=== PATIENT | female | born 1940 | race Caucasian/White ===

== ENCOUNTER 2016-12-18 06:46 | Inpatient (IN) | payer MEDICARE, OTHER ==
[2016-12-18 07:10] LABS: ABSOLUTE BASOPHILS # (AUTO) 0.1 10^3/uL (0.0-0.2); ABSOLUTE EOSINOPHILS # (AUTO) 0.3 10^3/uL (0.0-0.6); ABSOLUTE LYMPHOCYTES (AUTO) 1.9 10^3/uL (0.5-4.7); ABSOLUTE MONOCYTES (AUTO) 0.6 10^3/uL (0.1-1.4); ABSOLUTE NEUT (AUTO) 3.4 10^3/uL (1.7-8.2); BASOPHILS % (AUTO) 1.1 % (0-2); HEMATOCRIT 35.8 % (36.0-47.0); HEMOGLOBIN 12.2 g/dL (12.0-15.5); HGB HCT DIFFERENCE 0.8; LYMPHOCYTES % (AUTO) 30.9 % (13-45); MEAN CORPUSCULAR HEMOGLOBIN 29.9 pg (27.0-33.4); MEAN CORPUSCULAR HGB CONC 34.1 g/dL (32.0-36.0); MEAN CORPUSCULAR VOLUME 88 fl (80-97); MONOCYTES % (AUTO) 9.8 % (3-13); RED BLOOD COUNT 4.08 10^6/uL (3.72-5.28); RED CELL DISTRIBUTION WIDTH 14.1 % (11.5-14.0); SEGMENTED NEUTROPHILS % (AUTO) 54.2 % (42-78); WHITE BLOOD COUNT 6.3 10^3/uL (4.0-10.5)
--- NOTE | 2016-12-18 07:10 | ER Document Report ---
ED General - General Stated Complaint: STROKE LIKE SYMPTOMS Time Seen by Provider: 12/18/16 06:48 Mode of Arrival: Medic Information source: Patient Notes: 76-year-old female presents with stroke-like symptoms. Patient is noted to have left-sided deficits. Pt woke up her at 602 this morning with these symptoms, pt herself unsure if she awoke with the symptoms or not denies a history of CVA, notes there is a blood disorder that prohibits her from having blood thinners TRAVEL OUTSIDE OF THE [place] IN LAST 30 DAYS: No - HPI Onset: Just prior to arrival Onset/Duration: Sudden Quality of pain: No pain Severity: Moderate Pain Level: Denies Associated symptoms: Weakness Exacerbated by: Denies Relieved by: Denies Similar symptoms previously: No Recently seen / treated by doctor: No Past Medical History - Social History Smoking Status: Never Smoker Cigarette use (# per day): No Chew tobacco use (# tins/day): No Smoking Education Provided: No Family History: Reviewed & Not Pertinent Review of Systems - Review of Systems Notes: REVIEW OF SYSTEMS: CONSTITUTIONAL : Denies fever, chills, or sweats. Denies recent illness. EENT: Denies eye, ear, throat, or mouth pain or symptoms. Denies nasal or sinus congestion or discharge. Denies throat, tongue, or mouth swelling or difficulty swallowing. CARDIOVASCULAR: Denies chest pain. Denies palpitations or racing or irregular heart beat. Denies ankle edema. RESPIRATORY: Denies cough, cold, or chest congestion. Denies shortness of breath, difficulty breathing, or wheezing. GASTROINTESTINAL: Denies abdominal pain or distention. Denies nausea, vomiting , or diarrhea. Denies blood in vomitus, stools, or per rectum. Denies black, tarry stools. Denies constipation. GENITOURINARY: Denies difficulty urinating, painful urination, burning, frequency, blood in urine, or discharge. FEMALE GENITOURINARY: Denies vaginal bleeding, heavy or abnormal periods, irregular periods. Denies vaginal discharge or odor. MUSCULOSKELETAL: Denies back or neck pain or stiffness. Denies joint pain or swelling. SKIN: Denies rash, lesions or sores. HEMATOLOGIC : Denies easy bruising or bleeding. LYMPHATIC: Denies swollen, enlarged glands. NEUROLOGICAL: confusion, left sided weakness PSYCHIATRIC: Denies anxiety or stress. Denies depression, suicidal ideation, or homicidal ideation. ALL OTHER SYSTEMS REVIEWED AND NEGATIVE. PHYSICAL EXAMINATION: GENERAL: Well-appearing, well-nourished and in no acute distress. HEAD: Atraumatic, normocephalic. EYES: Pupils equal round and reactive to light, extraocular movements intact, conjunctiva are normal. ENT: Nares patent, oropharynx clear without exudates. Moist mucous membranes. NECK: Normal range of motion, supple without lymphadenopathy LUNGS: Breath sounds clear to auscultation bilaterally and equal. No wheezes rales or rhonchi. HEART: Regular rate and rhythm without murmurs ABDOMEN: Soft, nontender, nondistended abdomen. No guarding, no rebound. No masses appreciated. Female : deferred Musculoskeletal: Normal range of motion, no pitting or edema. No cyanosis. NEUROLOGICAL: NIH score 6, please see paper PSYCH: Normal mood, normal affect. SKIN: Warm, Dry, normal turgor, no rashes or lesions noted. Dictation was performed using [employer] voice recognition software Physical Exam - Vital signs Vitals: Resp BP Pulse Ox 17 153/63 H 96 12/18/16 06:57 12/18/16 06:57 12/18/16 06:57 Course - Re-evaluation Re-evalutation: 12/18/16 07:13 Physical examination is consistent with strokelike presentation, there is left arm and left leg weakness and left facial droop. Unfortunately it appears time of onset is very unclear and given history of allergies to blood thinners patient does not meet criteria for thrombolysis 12/18/16 07:48 pt given aspirin, otherwise no other intervention is needed as she is stable - Vital Signs Vital signs: Temp Pulse Resp BP Pulse Ox 67 17 161/63 H 96 12/18/16 07:12 12/18/16 07:31 12/18/16 07:31 12/18/16 07:31 - Laboratory Result Diagrams: 12/18/16 07:00 12/18/16 07:00 Laboratory results interpreted by me: 12/18/16 12/18/16 12/18/16 07:00 07:00 07:09 Hct 35.8 L RDW 14.1 H BUN 21 H Est GFR (Non-Af Amer) 59 L Glucose 112 H POC Glucose 114 H - Diagnostic Test Radiology reviewed: Image reviewed, Reports reviewed - EKG Interpretation by Me EKG shows normal: Sinus rhythm, [place], Intervals, QRS Complexes Discharge - Discharge Clinical Impression: Weakness of left side of body Cerebrovascular accident (CVA) Qualifiers: CVA mechanism: unspecified Qualified Code(s): I63.9 - Cerebral infarction, unspecified Condition: Stable Disposition: ADMITTED INPATIENT Admitting Provider: Hospitalist Unit Admitted: [facility]
[2016-12-18 07:14] LABS: PROTHROMBIN TIME 13.3 SEC (11.4-15.4)
--- NOTE | 2016-12-18 07:20 | RADIOLOGY REPORT (SQ) ---
EXAM DESCRIPTION: CT HEAD WITHOUT COMPLETED DATE/TIME: 12/18/2016 7:03 am REASON FOR STUDY: stroke alert COMPARISON: None. TECHNIQUE: Axial images acquired through the brain without intravenous contrast. Images reviewed wi th bone, brain and subdural windows. Images stored on PACS. All CT scanners at this facility use dose modulation, iterative reconstruction, and/or weight based d osing when appropriate to reduce radiation dose to as low as reasonably achievable (ALARA). [facility]: Dose Right [facility]: CareDose [facility]: Dose Right [facility]: Teradose 4D [facility]: Smart [place] RADIATION DOSE: mGy. LIMITATIONS: None. FINDINGS: VENTRICLES: Normal size and contour. CEREBRUM: [id number] cerebral volume loss. Moderate small vessel white matter ischemic disease . Lacunar infarct of the right basal ganglia, external capsule. CEREBELLUM: No masses. No hemorrhage. No alteration of density. No evidence for acute infarction. EXTRAAXIAL SPACES: No fluid collections. No masses. Atherosclerosis. ORBITS AND GLOBE: No intra- or extraconal masses. Normal contour of globe without masses. CALVARIUM: No fracture. PARANASAL SINUSES: No fluid or mucosal thickening. SOFT TISSUES: No mass or hematoma. OTHER: No other significant finding. IMPRESSION: No acute findings. COMMENT: This report was called to Dr. Yoselin De Anda at07:08 on 12/18/2016. TECHNICAL DOCUMENTATION: JOB ID: [id number] Quality ID # [id number]: Final reports with documentation of one or more dose reduction techniques (e.g., Au tomated exposure control, adjustment of the mA and/or kV according to patient size, use of iterative reconstruction technique) 2010 [email or web address]- All Rights Reserved
--- NOTE | 2016-12-18 07:23 | RADIOLOGY REPORT (SQ) ---
EXAM DESCRIPTION: CHEST SINGLE VIEW COMPLETED DATE/TIME: 12/18/2016 7:11 am REASON FOR STUDY: stroke alert COMPARISON: None. EXAM PARAMETERS: NUMBER OF VIEWS: One view. TECHNIQUE: Single frontal radiographic view of the chest acquired. RADIATION DOSE: NA LIMITATIONS: None. FINDINGS: LUNGS AND PLEURA: Small atelectasis or scar of the left lower lobe. Mild interstitial mar kings. MEDIASTINUM AND HILAR STRUCTURES: No masses. Contour normal. HEART AND VASCULAR STRUCTURES: Heart normal in size. Atherosclerosis. BONES: No acute findings. HARDWARE: None in the chest. OTHER: No other significant finding. IMPRESSION: Mild interstitial markings which may indicate mild pulmonary edema, atypical pneumonitis , and/ or chronic interstitial lung disease. TECHNICAL DOCUMENTATION: JOB ID: [id number]
[2016-12-18 07:33] LABS: ALANINE AMINOTRANSFERASE 24 U/L (9-52); ALBUMIN 3.8 g/dL (3.5-5.0); ALKALINE PHOSPHATASE 86 U/L (38-126); ANION GAP 10 (5-19); ASPARTATE AMINO TRANSFERASE 20 U/L (14-36); BILIRUBIN,DIRECT 0.3 mg/dL (0.0-0.4); BILIRUBIN,TOTAL 0.5 mg/dL (0.2-1.3); BLOOD UREA NITROGEN 21 mg/dL (7-20); CALCIUM 9.3 mg/dL (8.4-10.2); CARBON DIOXIDE 27 mmol/L (22-30); CHLORIDE 102 mmol/L (98-107); CREATINE KINASE 43 U/L (30-135); CREATININE RESULT 0.93 mg/dL (0.52-1.25); GLUCOSE 112 mg/dL (75-110); POTASSIUM 3.9 mmol/L (3.6-5.0); SODIUM 138.7 mmol/L (137-145); TOTAL PROTEIN 6.5 g/dL (6.3-8.2)
[2016-12-18 07:44] LABS: CREATINE KINASE MB 0.56 ng/mL (<4.55)
[2016-12-18 07:45] LABS: TROPONIN I < 0.012 ng/mL
[2016-12-18] MEDS ORDERED: ASPIRIN 325 MG TABLET PO ONE (07:45)
--- NOTE | 2016-12-18 08:05 | EKG REPORT ---
SEVERITY:- BORDERLINE ECG - SINUS RHYTHM : Confirmed by: Cirilo Fletcher MD 18-Dec-2016 08:04:04
[2016-12-18] MEDS ORDERED: LABETALOL HCL INJ 20 MG/4 ML DISP.SYRIN IV PRN (08:55)
[2016-12-18] MEDS ORDERED: DOCUSATE SODIUM 100 MG CAPSULE PO PRN (08:55)
[2016-12-18] MEDS ORDERED: MAGNESIUM HYDROXIDE SUSP 30 ML UDCUP PO PRN (08:55)
[2016-12-18] MEDS ORDERED: TRAMADOL HCL 50 MG TABLET PO PRN (08:55)
[2016-12-18] MEDS ORDERED: ENALAPRILAT DIHYDRATE INJ/PF 1.25 MG/1 ML SDV IV PRN (09:00)
[2016-12-18] MEDS: FAMOTIDINE 20 MG TABLET PO SCH ×2 (10:00→22:22)
[2016-12-18] MEDS: ASPIRIN 325 MG TABLET, ENT COATED PO SCH (10:55)
--- NOTE | 2016-12-18 12:08 | RADIOLOGY REPORT (SQ) ---
EXAM DESCRIPTION: CAROTID DOPPLER COMPLETED DATE/TIME: 12/18/2016 11:59 am REASON FOR STUDY: cva COMPARISON: None. TECHNIQUE: Grayscale ultrasound, Doppler velocity and spectra, and color Doppler images acquired of the extra-cranial carotid and vertebral arteries. Images stored on PACS. LIMITATIONS: None. FINDINGS: RIGHT CAROTID CCA Velocities: Within normal limits. ICA Velocities Peak systolic 1.46 m/s. End diastolic 0.23 m/s. Proximal ICA/CCA peak systolic ratio 1.4. Extensive heterogenous shadowing plaque. LEFT CAROTID CCA Velocities: Within normal limits. ICA Velocities Peak systolic 1.25 m/s. End diastolic 0.17 m/s. Proximal ICA/CCA peak systolic ratio 1.1. Heterogenous plaque. VERTEBRAL ARTERIES: Antegrade flow. Normal waveforms. SUBCLAVIAN ARTERIES: No finding. OTHER: No other significant finding. IMPRESSION: BILATERAL HETEROGENOUS PLAQUE. ELEVATED VELOCITIES BUT LESS THAN 50% STENOSIS. COMMENT: Quality ID #[id number]: Velocity criteria are extrapolated from the diameter data as defined by t he Society of Radiologists in Ultrasound Consensus Conference. Radiology 2003: 229; 340-346. TECHNICAL DOCUMENTATION: JOB ID: [id number] [employer]- All Rights Reserved
--- NOTE | 2016-12-18 13:09 | XCELERA REPORT ---
[address] [address] Transthoracic Echocardiogram Report Name: FIDENCIO MORA Age: 76 yrs Gender: Female : 1940 Patient Status: Inpatient Patient Location: [id number]\313\[id number]\A Study Date: 12/18/2016 10:31 AM Height: 66 in Weight: 188 lb BSA: 1.9 m2 Procedure: A complete two-dimensional transthoracic echocardiogram was performed (2D, M-mode, spectral and color flow Doppler). The study was technically adequate with some images being suboptimal in quality. Reason For Study: hx of mi, palpitations, acute cva Ordering Physician: RENALDO HERNANDEZ Performed By: Shayy Pierre Interpretation Summary The left ventricular ejection fraction is normal. There is mild concentric left ventricular hypertrophy. Doppler measurements suggest pseudonormalized left ventricular relaxation, which is associated with grade II/IV or mild to moderate diastolic dysfunction The left ventricle is grossly normal size. Wall motion cannot be accurately commented on, but no definite regional wall motion abnormalities noted. The right ventricular systolic function is normal. The left atrial size is normal. The right atrium is normal in size There is a mild amount of mitral regurgitation There is no mitral valve stenosis. No aortic regurgitation is present. There is no aortic valve stenosis There is a trace or physiologic amount of tricuspid regurgitation Tricuspid regurgitation jet envelope not well defined to measure RV systolic pressure accurately. The aortic root is not well visualized. The inferior vena cava appeared normal and decreased > 50% with respiration (RAP 5-10 mmHg) There is no pericardial effusion. No definite cardiac source of CVA/TIA noted on this particular trans- thoracic study. Consider JESUSITA if clinically indicated. May consider mobile cardiac telemetry monitoring (MCT) for ruling out transient AFIB. MMode/2D Measurements \T\ Calculations RVDd: 3.7 cm LVIDd: 4.0 cm FS: 39.4 % Ao root diam: 2.5 cm IVSd: 1.0 cm LVIDs: 2.4 cm EDV(Teich): 71.0 ml LVPWd: 1.0 cm ESV(Teich): 20.9 ml Ao root area: 5.0 cm2 EF(Teich): 70.5 % LA dimension: 3.5 cm Doppler Measurements \T\ Calculations MV E max lm: MV P1/2t max lm: Ao V2 max: LV V1 max P.5 cm/sec 77.5 cm/sec 132.6 cm/sec 5.6 mmHg MV A max lm: MV P1/2t: 112.4 msec Ao max PG: LV V1 max: 103.0 cm/sec 7.0 mmHg 118.0 cm/sec MV E/A: 0.77 MVA(P1/2t): 2.0 cm2 MV dec slope: 202.0 cm/sec2 MV dec time: 0.37 sec PA V2 max: TR max lm: 82.9 cm/sec 228.8 cm/sec PA max P.8 mmHgTR max P.9 mmHg Left Ventricle The left ventricle is grossly normal size. There is mild concentric left ventricular hypertrophy. The left ventricular ejection fraction is normal. Doppler measurements suggest pseudonormalized left ventricular relaxation, which is associated with grade II/IV or mild to moderate diastolic dysfunction. Wall motion cannot be accurately commented on, but no definite regional wall motion abnormalities noted. Right Ventricle The right ventricle is grossly normal size. There is normal right ventricular wall thickness. The right ventricular systolic function is normal. Atria The right atrium is normal in size. The left atrial size is normal. Interarterial septum not well visualized and not well dopplered. Cannot comment on ASD/PFO presence. Mitral Valve The mitral valve is grossly normal. There is no mitral valve stenosis. There is a mild amount of mitral regurgitation. Aortic Valve The aortic valve is mildly calcified. There is no aortic valve stenosis. No aortic regurgitation is present. Tricuspid Valve The tricuspid valve is not well visualized secondary to technical limitations. There is no tricuspid stenosis. There is a trace or physiologic amount of tricuspid regurgitation. Tricuspid regurgitation jet envelope not well defined to measure RV systolic pressure accurately. Pulmonic Valve The pulmonic valve is not well visualized. Great Vessels The aortic root is not well visualized. The inferior vena cava appeared normal and decreased > 50% with respiration (RAP 5-10 mmHg). Effusions There is no pericardial effusion. Incidental Findings No definite cardiac source of CVA/TIA noted on this particular trans- thoracic study. Consider JESUSITA if clinically indicated. May consider mobile cardiac telemetry monitoring (MCT) for ruling out transient AFIB. : RENALDO HERNANDEZ > Tejinder Guillen
--- NOTE | 2016-12-18 13:34 | RADIOLOGY REPORT (SQ) ---
EXAM DESCRIPTION: MRI HEAD WITHOUT COMPLETED DATE/TIME: 12/18/2016 1:23 pm REASON FOR STUDY: acute cva, left hemiparesis, left facial droop COMPARISON: CT dated 12/18/2016. TECHNIQUE: Multiplanar imaging includes non-contrasted T1, T2, FLAIR, and diffusion with ADC map seq uences. Images stored on PACS. LIMITATIONS: None. FINDINGS: ANATOMY: No anomalies. Normal vascular flow voids. Pituitary fossa normal. CSF SPACES: Atrophy induced prominence of ventricles and CSF spaces. CEREBRUM: High signal intensity lesions scattered throughout the white matter on FLAIR imaging with d istribution suggesting micro-vascular ischemic changes. No evidence of hemorrhage, mass, or extraaxi al fluid collection. POSTERIOR FOSSA: No signal alteration. No hemorrhage. No edema, masses or mass effect. Internal francoise tory canals, cerebello-pontine angles, mastoids normal. DIFFUSION IMAGING: Focal area of restricted diffusion in the right thalamus. ORBITS: No masses. Globes normal. PARANASAL SINUSES: No fluid levels. Mucosa normal. OTHER: No other significant finding. IMPRESSION: FOCAL AREA OF RESTRICTED DIFFUSION IN THE RIGHT THALAMUS CONSISTENT WITH ACUTE INFARCT. ATROPHY AND CHRONIC MICRO-VASCULAR ISCHEMIC CHANGES. EVIDENCE OF ACUTE STROKE: YES. RIGHT [employer] TECHNICAL DOCUMENTATION: JOB ID: [id number] [employer]- All Rights Reserved
--- NOTE | 2016-12-18 14:14 | PDOC H&P ---
History of Present Illness Admission Date/PCP: 12/18/16 08:03 History of Present Illness: FIDENCIO GARY is a 76 year old female with past medical history of hypertension, myocardial infarction approximately 25 years ago, GI bleed in 2010 , insomnia, depression/anxiety who reportedly woke up at approximately 6 AM. At which time patient reports that she was unable to get out of bed and asked her for assistance. She was unable to stand and ended up falling. Patient had no loss of consciousness at that time. No seizure activity was noted. Patient noted to have left upper and lower extremity weakness at that time. Patient also noted to have left facial droop. Patient recently has been started on a baby aspirin. Patient does report a history of palpitations but no overt diagnosis of atrial fibrillation. Patient was reportedly taken off of a blood pressure medication or some other heart medication yesterday. She last saw Dr. Azul her roving marker December 04. Patient presented outside of the window for thrombolytics. Her NIH scale was 6. On CAT scan of her head, patient has an old lacunar infarct but nothing acute. She is referred to the hospitalist service for acute CVA. Past Medical History Cardiac Medical History: Reports: Coronary Artery Disease, Myocardial Infarction , Hyperlipidema, Hypertension Pulmonary Medical History: Reports: None EENT Medical History: Reports: Cataracts Neurological Medical History: Reports: Ischemic CVA Endocrine Medical History: Reports: None Renal/ Medical History: Reports: None Malignancy Medical History: Reports: None GI Medical History: Reports: Other - GI bleed requiring transfusion and admission Musculoskeltal Medical History: Reports: Arthritis Skin Medical History: Reports: None Psychiatric Medical History: Reports: None Traumatic Medical History: Reports: None Hematology: Reports: None Infectious Medical History: Reports: None Past Surgical History Past Surgical History: Reports: Coronary Stent - Approximately 25 years ago with balloon angioplasty/stent in [place], Other - Cataract surgery Social History Smoking Status: Former Smoker Frequency of Alcohol Use: Occasional Amount of Alcoholic Beverages Per Day: 1 glass of wine approximately 3-4 times per week with dinner Hx Recreational Drug Use: No Hx Prescription Drug Abuse: No - Advance Directive Resuscitation Status: Full Code Surrogate healthcare decision maker:: Dawit Gary, Family History Family History: CVA, Hypertension Parental Family History Reviewed: Yes Children Family History Reviewed: Yes Sibling(s) Family History Reviewed.: Yes Medication/Allergy Home Medications: Losartan Potassium [Cozaar] 50 mg PO DAILY 12/18/16 Memantine HCl [Namenda] 5 mg PO DAILY 12/18/16 Risperidone [Risperdal 1 mg Tablet] 1 mg PO QHS 12/18/16 Sertraline HCl [Zoloft 50 mg Tablet] 50 mg PO DAILY 12/18/16 Allergies/Adverse Reactions: clopidogrel [From Plavix] Allergy (Verified 12/18/16 08:02) Sulfa (Sulfonamide Antibiotics) Allergy (Verified 12/18/16 08:02) Review of Systems Constitutional: ABSENT: chills, fever(s), headache(s), weight gain, weight loss Eyes: ABSENT: visual disturbances Ears: ABSENT: hearing changes Cardiovascular: ABSENT: chest pain, dyspnea on exertion, edema, orthropnea, palpitations Respiratory: ABSENT: cough, hemoptysis Gastrointestinal: ABSENT: abdominal pain, constipation, diarrhea, hematemesis, hematochezia, nausea, vomiting Genitourinary: ABSENT: dysuria, hematuria Musculoskeletal: ABSENT: joint swelling Integumentary: ABSENT: rash, wounds Neurological: PRESENT: as per HPI, abnormal gait, numbness, paresthesias, weakness. ABSENT: abnormal speech, confusion, dizziness, focal weakness, syncope Psychiatric: ABSENT: anxiety, depression, homidical ideation, suicidal ideation Endocrine: ABSENT: cold intolerance, heat intolerance, polydipsia, polyuria Hematologic/Lymphatic: ABSENT: easy bleeding, easy bruising Physical Exam Vital Signs: Temp Pulse Resp BP Pulse Ox 97.9 F 67 20 152/60 H 95 12/18/16 07:46 12/18/16 07:12 12/18/16 07:46 12/18/16 07:46 12/18/16 07:46 General appearance: PRESENT: no acute distress, obese, well-developed, well- nourished Head exam: PRESENT: atraumatic, normocephalic, other - Left facial droop Eye exam: PRESENT: conjunctiva pink, EOMI, PERRLA. ABSENT: scleral icterus Ear exam: PRESENT: normal external ear exam Mouth exam: PRESENT: moist, tongue midline Neck exam: ABSENT: carotid bruit, JVD, lymphadenopathy, thyromegaly, tracheal deviation Respiratory exam: PRESENT: clear to auscultation ric, prolonged expiratory phas , symmetrical, unlabored. ABSENT: crackles, rales, rhonchi, tachypnea, wheezes Cardiovascular exam: PRESENT: RRR, +S1, +S2, systolic murmur - 2/6 sm llsb. ABSENT: diastolic murmur, rubs Pulses: PRESENT: normal dorsalis pedis pul Vascular exam: PRESENT: normal capillary refill GI/Abdominal exam: PRESENT: normal bowel sounds, soft. ABSENT: distended, guarding, mass, Guillory's sign, organolmegaly, rebound, tenderness Rectal exam: PRESENT: deferred Extremities exam: PRESENT: full ROM. ABSENT: calf tenderness, clubbing, pedal edema Neurological exam: PRESENT: alert, awake, oriented to person, oriented to place , oriented to time, oriented to situation, motor sensory deficit - Left upper extremity 4-/5, left lower extremity 3-/5, left lower extremity paresthesia. ABSENT: CN II-XII grossly intact - Left facial droop, left cranial nerve V deficit Psychiatric exam: PRESENT: appropriate affect, normal mood. ABSENT: homicidal ideation, suicidal ideation Skin exam: PRESENT: dry, intact, warm. ABSENT: cyanosis, rash Results Laboratory Results: 12/18/16 12/18/16 12/18/16 07:00 07:00 07:00 WBC 6.3 Hgb 12.2 Hct 35.8 L Plt Count 208 INR 0.94 Sodium 138.7 Potassium 3.9 Chloride 102 Carbon Dioxide 27 BUN 21 H Creatinine 0.93 Glucose 112 H POC Glucose Calcium 9.3 Troponin I Albumin 3.8 12/18/16 12/18/16 07:00 07:09 WBC Hgb Hct Plt Count INR Sodium Potassium Chloride Carbon Dioxide BUN Creatinine Glucose POC Glucose 114 H Calcium Troponin I < 0.012 Albumin Impressions: Chest X-Ray 12/18/16 06:48 IMPRESSION: Mild interstitial markings which may indicate mild pulmonary edema , atypical pneumonitis, and/ or chronic interstitial lung disease. Head CT 12/18/16 06:48 IMPRESSION: No acute findings. Status: Imported from PACS Assessment & Plan - Diagnosis (1) CVA (cerebral vascular accident) Qualifiers: CVA mechanism: stenosis Precerebral and cerebral artery: middle cerebral artery Laterality of affected vessel: left Qualified Code(s) : I63.512 - Cerebral infarction due to unspecified occlusion or stenosis of left middle cerebral artery Is this a current diagnosis for this admission?: YesPlan: We will obtain MRI and carotid Doppler as well as echocardiogram if one was not performed at her last cardiology visit. Have concerned that patient may have underlying atrial fibrillation and will recommend that patient obtain a Holter monitor or MCT as an outpatient. Allow for permissive hypertension and admit patient to IMCU. MEND examinations q4 hours. 325 mg aspirin orally daily. Monitor on telemetry. Obtain PT, OT, and speech consultations. Place patient on Lipitor. Check FLP. (2) Left-sided weakness Is this a current diagnosis for this admission?: YesPlan: Consultation for PT, OT, and speech. Suspect the patient will likely need inpatient therapy. Will obtain discharge planning consultation. (3) Hypertension Qualifiers: Hypertension type: essential hypertension Qualified Code(s): I10 - Essential (primary) hypertension Is this a current diagnosis for this admission?: YesPlan: At this time, will allow for permissive hypertension, but in light of patient's relative bradycardia, will place patient on enalapril at as needed systolic greater than 180. (4) Hyperlipidemia Qualifiers: Hyperlipidemia type: unspecified Qualified Code(s): E78.5 - Hyperlipidemia, unspecified Is this a current diagnosis for this admission?: YesPlan: Check FLP (5) Coronary artery disease Qualifiers: Coronary Disease-Associated Artery/Lesion type: unspecified vessel or lesion type [place] vs. transplanted heart: [place] heart Associated angina: without angina Qualified Code(s): I25.10 - Atherosclerotic heart disease of [place] coronary artery without angina pectoris Is this a current diagnosis for this admission?: YesPlan: We will obtain outside record of the patient's prior stenting in order to obtain MRI. Continue patient on 81 mg aspirin and we will re-add losartan as soon as able. Suspect that patient's beta-raven was stopped. (6) History of GI bleed Is this a current diagnosis for this admission?: YesPlan: Patient reports allergy to Plavix which precipitated her GI bleed. (7) Dementia Qualifiers: Dementia type: vascular dementia Dementia behavioral disturbance: without behavioral disturbance Qualified Code(s): F01.50 - Vascular dementia without behavioral disturbance Is this a current diagnosis for this admission?: YesPlan: Patient is currently on Namenda and Risperdal. Provide supportive care and suspect that this is likely due to vascular dementia. (8) Obesity with serious comorbidity Qualifiers: Obesity classification: adult class 1 (BMI 30 ? 34.9) Body mass index: BMI 30.0-30.9 Is this a current diagnosis for this admission?: YesPlan: Encourage appropriate weight loss. Dietary consultation - Time Time Spent: 50 to 70 Minutes Medications reviewed and adjusted accordingly: Yes Anticipated discharge: Acute Rehab Within: within 48 hours - Inpatient Certification Based on my medical assessment, after consideration of the patient's comorbidities, presenting symptoms, or acuity I expect that the services needed warrant INPATIENT care.: Yes I certify that my determination is in accordance with my understanding of Medicare's requirements for reasonable and necessary INPATIENT services [42 CFR 412.3e].: Yes Medical Necessity: Need Close Monitoring Due to Risk of Patient Decompensation, Need For Continuous Telemetry Monitoring Post Hospital Care: D/C Special Investigator Documentation
[2016-12-18] MEDS: HEPARIN SOD (PORCINE) 5,000 UNIT/ML 1 ML SYRINGE SUBCUT SCH ×2 (14:46→22:22)
[2016-12-18] MEDS: ACETAMINOPHEN 325 MG TABLET PO PRN (14:46)
[2016-12-18 14:52] LABS: CREATINE KINASE MB 0.58 ng/mL (<4.55)
[2016-12-18 14:55] LABS: TROPONIN I < 0.012 ng/mL
--- NOTE | 2016-12-18 18:21 | EKG REPORT ---
SEVERITY:- NORMAL ECG - SINUS RHYTHM : Confirmed by: Cirilo Fletcher MD 18-Dec-2016 18:20:25
[2016-12-18 19:48] LABS: TROPONIN I < 0.012 ng/mL
[2016-12-18] MEDS: ATORVASTATIN CALCIUM 40 MG TABLET PO SCH (22:23)
[2016-12-19 01:45] LABS: CREATINE KINASE MB 0.84 ng/mL (<4.55)
[2016-12-19 01:50] LABS: TROPONIN I < 0.012 ng/mL
[2016-12-19] MEDS: HEPARIN SOD (PORCINE) 5,000 UNIT/ML 1 ML SYRINGE SUBCUT SCH ×3 (06:17→21:31)
[2016-12-19 06:41] LABS: CHOLESTEROL 227.06 mg/dL (0-200); Direct HDL 50 mg/dL (>40); TRIGLYCERIDES 146 mg/dL (<150)
[2016-12-19 06:53] LABS: DIRECT LDL 146 mg/dL (<100)
[2016-12-19] MEDS: FAMOTIDINE 20 MG TABLET PO SCH ×2 (11:02→21:31)
[2016-12-19] MEDS: ASPIRIN 325 MG TABLET, ENT COATED PO SCH (11:02)
[2016-12-19] MEDS: LOSARTAN POTASSIUM 50 MG TABLET PO SCH (12:37)
[2016-12-19] MEDS: SERTRALINE HCL 50 MG TABLET PO SCH (12:37)
--- NOTE | 2016-12-19 16:16 | PDOC PROGRESS REPORT ---
Subjective Progress Note for:: 12/19/16 Subjective:: Patient reports she did not sleep well last night. She has no new complaints. Her is at bedside we discussed the results of all of her testing. Patient denies chest pain, shortness of breath, abdominal pain, nausea, vomiting , fevers, chills, diarrhea, constipation. Patient does complain of a slight headache and reports that her left upper extremity weakness is about the same. Physical Exam Vital Signs: Temp Pulse Resp BP Pulse Ox 97.7 F 56 L 17 152/47 H 94 12/19/16 03:25 12/19/16 03:25 12/19/16 03:25 12/19/16 03:25 12/19/16 03:25 Intake & Output 12/18/16 12/19/16 12/20/16 06:59 06:59 06:59 Intake Total 810 Output Total 1750 Balance -940 Weight 86.6 kg Exam: General: Awake alert and oriented x3, no acute respiratory distress HEENT: AT/NC, PERRL, EOMI, oropharynx is moist, pink, no scleral icterus, no conjunctival injection Neck: No JVD, trachea midline Chest: Clear to auscultation bilaterally, no wheezes rhonchi or rales CV: Regular rate and rhythm, normal S1 and S2, 2/6 llsb murmur, no rub, no gallop Abdomen: Soft, nontender to palpation, nondistended, active bowel sounds; no rebound, rigidity, or guarding Extremities: No cyanosis, clubbing or edema Neuro: Left upper extremity 3- /5; left lower extremity 4/5; mild left facial droop, improved; awake alert and orientedx3 Psych: Normal mood and affect Results Laboratory Results: 12/19/16 05:50 Triglycerides 146 Cholesterol 227.06 H LDL Cholesterol Direct 146 H VLDL Cholesterol 29.0 HDL Cholesterol 50 12/18/16 12/18/16 12/18/16 13:58 13:58 19:08 Creatine Kinase 42 48 CK-MB (CK-2) 0.58 Troponin I < 0.012 12/18/16 12/19/16 12/19/16 19:08 01:05 01:05 Creatine Kinase 60 CK-MB (CK-2) 0.60 0.84 Troponin I < 0.012 < 0.012 Impressions: Head MRI 12/18/16 00:00 IMPRESSION: FOCAL AREA OF RESTRICTED DIFFUSION IN THE RIGHT THALAMUS CONSISTENT WITH ACUTE INFARCT. ATROPHY AND CHRONIC MICRO-VASCULAR ISCHEMIC CHANGES. EVIDENCE OF ACUTE STROKE: YES. RIGHT HEALTH INSURANCE ASSESSOR Chest X-Ray 12/18/16 06:48 IMPRESSION: Mild interstitial markings which may indicate mild pulmonary edema , atypical pneumonitis, and/ or chronic interstitial lung disease. Head CT 12/18/16 06:48 IMPRESSION: No acute findings. Carotid Doppler Study 12/18/16 08:58 IMPRESSION: BILATERAL HETEROGENOUS PLAQUE. ELEVATED VELOCITIES BUT LESS THAN 50% STENOSIS. Assessment & Plan - Diagnosis (1) CVA (cerebral vascular accident) Qualifiers: CVA mechanism: stenosis Precerebral and cerebral artery: middle cerebral artery Laterality of affected vessel: left Qualified Code(s) : I63.512 - Cerebral infarction due to unspecified occlusion or stenosis of left middle cerebral artery Is this a current diagnosis for this admission?: YesPlan: Patient had a left thalamic infarct. This is likely due to atherosclerosis. Resume patient's Cozaar. Stop mend examinations. Continue patient on Lipitor. Carotid Doppler reveals atherosclerosis without significant stenosis. Patient has been advised to follow on this within 1 year. PT and OT have seen this patient and recommend inpatient therapy. Discharge planning has been consulted (2) Left-sided weakness Is this a current diagnosis for this admission?: Yes (3) Hypertension Qualifiers: Hypertension type: essential hypertension Qualified Code(s): I10 - Essential (primary) hypertension Is this a current diagnosis for this admission?: YesPlan: Resume Cozaar (4) Hyperlipidemia Qualifiers: Hyperlipidemia type: unspecified Qualified Code(s): E78.5 - Hyperlipidemia, unspecified Is this a current diagnosis for this admission?: YesPlan: LDL 146 Place patient on Lipitor (5) Coronary artery disease Qualifiers: Coronary Disease-Associated Artery/Lesion type: unspecified vessel or lesion type [place] vs. transplanted heart: [place] heart Associated angina: without angina Qualified Code(s): I25.10 - Atherosclerotic heart disease of [place] coronary artery without angina pectoris Is this a current diagnosis for this admission?: Yes (6) History of GI bleed Is this a current diagnosis for this admission?: Yes (7) Dementia Qualifiers: Dementia type: vascular dementia Dementia behavioral disturbance: without behavioral disturbance Qualified Code(s): F01.50 - Vascular dementia without behavioral disturbance Is this a current diagnosis for this admission?: YesPlan: Patient is currently on Namenda and Risperdal. Resume these medications. Provide supportive care and suspect that this is likely due to vascular dementia. (8) Obesity with serious comorbidity Qualifiers: Obesity classification: adult class 1 (BMI 30 ? 34.9) Body mass index: BMI 30.0-30.9 Is this a current diagnosis for this admission?: Yes - Time Time Spent with patient: 25-34 minutes Medications reviewed and adjusted accordingly: Yes Anticipated discharge: Acute Rehab Within: when bed available
[2016-12-19] MEDS: RISPERIDONE 1 MG TABLET PO SCH (21:31)
[2016-12-19] MEDS: ATORVASTATIN CALCIUM 40 MG TABLET PO SCH (21:31)
[2016-12-20 03:56] LABS: APPEARANCE,URINE CLOUDY; BILIRUBIN,URINE NEGATIVE (NEGATIVE); GLUCOSE, URINE NEGATIVE (NEGATIVE); KETONES,URINE NEGATIVE (NEGATIVE); LEUKOCYTE ESTERASE,URINE LARGE (NEGATIVE); NITRITE,URINE POSITIVE (NEGATIVE); PROTEIN,URINE NEGATIVE (NEGATIVE); URINE SPECIFIC GRAVITY 1.008; UROBILINOGEN,URINE NEGATIVE mg/dL (<2.0)
[2016-12-20] MEDS: HEPARIN SOD (PORCINE) 5,000 UNIT/ML 1 ML SYRINGE SUBCUT SCH ×3 (06:48→21:48)
[2016-12-20] MEDS: CEFTRIAXONE 1 GM/D5W RTU 50 ML IV SCH (09:33)
[2016-12-20] MEDS: ASPIRIN 325 MG TABLET, ENT COATED PO SCH (09:33)
[2016-12-20] MEDS: FAMOTIDINE 20 MG TABLET PO SCH ×2 (09:34→21:48)
[2016-12-20] MEDS: MEMANTINE HCL 10 MG TABLET PO SCH (09:34)
[2016-12-20] MEDS ORDERED: (PENDING PHARMACY ID) (Memantine Hcl [Namenda] 5 MG) PO SCH (10:00)
[2016-12-20] MEDS ORDERED: BISACODYL 10 MG SUPP.RECT PR PRN (12:10)
[2016-12-20] MEDS ORDERED: BISACODYL 10 MG SUPP.RECT PR ONE (12:10)
[2016-12-20] MEDS: LOSARTAN POTASSIUM 50 MG TABLET PO SCH (12:11)
[2016-12-20] MEDS: SERTRALINE HCL 50 MG TABLET PO SCH (12:12)
[2016-12-20] MEDS ORDERED: MAGNESIUM HYDROXIDE SUSP 30 ML UDCUP PO PRN (13:46)
--- NOTE | 2016-12-20 14:02 | PDOC PROGRESS REPORT ---
Subjective Progress Note for:: 12/20/16 Subjective:: Patient reports she did sleep well last night. She complains of constipation. Patient denies chest pain, shortness of breath, abdominal pain, nausea, vomiting , fevers, chills, diarrhea, constipation. Patient reportedly was mildly improved with PT today. present at bedside. Physical Exam Vital Signs: Temp Pulse Resp BP Pulse Ox 98.5 F 59 L 18 148/54 H 94 12/20/16 11:23 12/20/16 11:23 12/20/16 11:23 12/20/16 11:23 12/20/16 11:23 Intake & Output 12/19/16 12/20/16 12/21/16 06:59 06:59 06:59 Intake Total 813 938 838 Output Total 1750 421 500 Balance -937 -12 338 Weight 86.6 kg 84.8 kg Exam: General: Awake alert and oriented x3, no acute respiratory distress HEENT: AT/NC, PERRL, EOMI, oropharynx is moist, pink, no scleral icterus, no conjunctival injection Neck: No JVD, trachea midline Chest: Clear to auscultation bilaterally, no wheezes rhonchi or rales CV: Regular rate and rhythm, normal S1 and S2, 2/6 llsb murmur, no rub, no gallop Abdomen: Soft, nontender to palpation, nondistended, active bowel sounds; no rebound, rigidity, or guarding Extremities: No cyanosis, clubbing or edema Neuro: Left upper extremity 4- /5; left lower extremity 4+/5; mild left facial droop, improving; awake alert and orientedx3 Psych: Normal mood and affect Results Laboratory Results: 12/20/16 03:30 Urine Color YELLOW Urine Appearance CLOUDY Urine pH 5.0 Ur Specific [place] 1.008 Urine Protein NEGATIVE Urine Glucose (UA) NEGATIVE Urine Ketones NEGATIVE Urine Blood SMALL H Urine Nitrite POSITIVE H Ur Leukocyte Esterase LARGE H Urine WBC (Auto) >182 Urine RBC (Auto) 3 12/18/16 12/18/16 12/18/16 13:58 13:58 19:08 Creatine Kinase 42 48 CK-MB (CK-2) 0.58 Troponin I < 0.012 12/18/16 12/19/16 12/19/16 19:08 01:05 01:05 Creatine Kinase 60 CK-MB (CK-2) 0.60 0.84 Troponin I < 0.012 < 0.012 Impressions: Head MRI 12/18/16 00:00 IMPRESSION: FOCAL AREA OF RESTRICTED DIFFUSION IN THE RIGHT THALAMUS CONSISTENT WITH ACUTE INFARCT. ATROPHY AND CHRONIC MICRO-VASCULAR ISCHEMIC CHANGES. EVIDENCE OF ACUTE STROKE: YES. RIGHT GUARD SERGEANT Chest X-Ray 12/18/16 06:48 IMPRESSION: Mild interstitial markings which may indicate mild pulmonary edema , atypical pneumonitis, and/ or chronic interstitial lung disease. Head CT 12/18/16 06:48 IMPRESSION: No acute findings. Carotid Doppler Study 12/18/16 08:58 IMPRESSION: BILATERAL HETEROGENOUS PLAQUE. ELEVATED VELOCITIES BUT LESS THAN 50% STENOSIS. Assessment & Plan - Diagnosis (1) CVA (cerebral vascular accident) Qualifiers: CVA mechanism: stenosis Precerebral and cerebral artery: posterior cerebral artery Laterality of affected vessel: left Qualified Code(s) : I63.532 - Cerebral infarction due to unspecified occlusion or stenosis of left posterior cerebral artery Is this a current diagnosis for this admission?: YesPlan: Patient had a left thalamic infarct. This is likely due to atherosclerosis. Increase Cozaar to 100mg po daily. Patient on Aspirin 325mg po daily. No heartburn or dark stool. Continue patient on Lipitor. Carotid Doppler reveals atherosclerosis without significant stenosis. Patient has been advised to follow on this within 1 year. PT and OT have seen this patient and recommend inpatient therapy. Discharge planning has been consulted and pending rehab placement (2) Left-sided weakness Is this a current diagnosis for this admission?: YesPlan: Consultation for PT, OT, and speech. discharge planning pending bed offer (3) Hypertension Qualifiers: Hypertension type: essential hypertension Qualified Code(s): I10 - Essential (primary) hypertension Is this a current diagnosis for this admission?: YesPlan: Increase Cozaar to 100mg po daily (4) Hyperlipidemia Qualifiers: Hyperlipidemia type: unspecified Qualified Code(s): E78.5 - Hyperlipidemia, unspecified Is this a current diagnosis for this admission?: YesPlan: LDL 146 Place patient on Lipitor (5) Coronary artery disease Qualifiers: Coronary Disease-Associated Artery/Lesion type: unspecified vessel or lesion type [place] vs. transplanted heart: [place] heart Associated angina: without angina Qualified Code(s): I25.10 - Atherosclerotic heart disease of [place] coronary artery without angina pectoris Is this a current diagnosis for this admission?: YesPlan: Patient on Cozaar and Aspirin No beta raven secondary to bradycardia (6) History of GI bleed Is this a current diagnosis for this admission?: YesPlan: Patient reports allergy to Plavix which precipitated her GI bleed. (7) Dementia Qualifiers: Dementia type: vascular dementia Dementia behavioral disturbance: without behavioral disturbance Qualified Code(s): F01.50 - Vascular dementia without behavioral disturbance Is this a current diagnosis for this admission?: YesPlan: Patient is currently on Namenda and Risperdal. Provide supportive care and suspect that this is likely due to vascular dementia. (8) Obesity with serious comorbidity Qualifiers: Obesity classification: adult class 1 (BMI 30 ? 34.9) Body mass index: BMI 30.0-30.9 Is this a current diagnosis for this admission?: YesPlan: Encourage appropriate weight loss. Dietary consultation (9) UTI (urinary tract infection) Qualifiers: Urinary tract infection type: acute cystitis Hematuria presence: without hematuria Qualified Code(s): N30.00 - Acute cystitis without hematuria Is this a current diagnosis for this admission?: YesPlan: Place patient on Rocephin pending culture results (10) Constipation Qualifiers: Constipation type: unspecified constipation type Qualified Code(s): K59.00 - Constipation, unspecified Is this a current diagnosis for this admission?: YesPlan: Give dulcolox supp x1 - Time Time Spent with patient: 25-34 minutes Medications reviewed and adjusted accordingly: Yes Anticipated discharge: Acute Rehab Within: when bed available
[2016-12-20] MEDS ORDERED: LOSARTAN POTASSIUM 50 MG TABLET PO ONE (14:30)
[2016-12-20] MEDS: ACETAMINOPHEN 325 MG TABLET PO PRN (16:26)
[2016-12-20] MEDS: DOCUSATE SODIUM 100 MG CAPSULE PO SCH (17:08)
[2016-12-20] MEDS: RISPERIDONE 1 MG TABLET PO SCH (21:47)
[2016-12-20] MEDS: ATORVASTATIN CALCIUM 40 MG TABLET PO SCH (21:47)
[2016-12-21] MEDS: HEPARIN SOD (PORCINE) 5,000 UNIT/ML 1 ML SYRINGE SUBCUT SCH (06:55)
[2016-12-21] MEDS: CEFTRIAXONE 1 GM/D5W RTU 50 ML IV SCH (08:57)
[2016-12-21] MEDS: ASPIRIN 325 MG TABLET, ENT COATED PO SCH (08:57)
[2016-12-21] MEDS: FAMOTIDINE 20 MG TABLET PO SCH (08:58)
[2016-12-21] MEDS: DOCUSATE SODIUM 100 MG CAPSULE PO SCH (08:58)
[2016-12-21] MEDS: MEMANTINE HCL 10 MG TABLET PO SCH (08:59)
--- NOTE | 2016-12-21 11:36 | PDOC DISCHARGE SUMMARY ---
General - Admit/Disc Date/PCP Admission Date/Primary Care Provider: 12/18/16 08:55 Discharge Date: 12/21/16 - Discharge Diagnosis (1) CVA (cerebral vascular accident) Is this a current diagnosis for this admission?: Yes (2) Left-sided weakness Is this a current diagnosis for this admission?: Yes (3) Hypertension Is this a current diagnosis for this admission?: Yes (4) Hyperlipidemia Is this a current diagnosis for this admission?: Yes (5) Coronary artery disease Is this a current diagnosis for this admission?: Yes (6) History of GI bleed Is this a current diagnosis for this admission?: Yes (7) Dementia Is this a current diagnosis for this admission?: Yes (8) Obesity with serious comorbidity Is this a current diagnosis for this admission?: Yes (9) UTI (urinary tract infection) Is this a current diagnosis for this admission?: Yes (10) Constipation Is this a current diagnosis for this admission?: Yes - Additional Information Resuscitation Status: Full Code Discharge Diet: Cardiac Discharge Activity: Activity As Tolerated, Supervised Activity Home Medications: Memantine HCl [Namenda] 5 mg PO DAILY 12/18/16 Risperidone [Risperdal 1 mg Tablet] 1 mg PO QHS 12/18/16 Sertraline HCl [Zoloft 50 mg Tablet] 50 mg PO DAILY 12/18/16 Aspirin [Ecotrin 325 mg EC Tablet] 325 mg PO DAILY #90 tabec 12/21/16 Atorvastatin Calcium [Lipitor 40 mg Tablet] 40 mg PO QHS #30 tablet 12/21/16 Ciprofloxacin HCl [Cipro 250 mg Tablet] 1 tab PO BID #10 tab 12/21/16 Docusate Sodium [Colace 100 mg Capsule] 100 mg PO BID #60 capsule 12/21/16 Famotidine [Pepcid 20 mg Tablet] 20 mg PO Q12 #60 tablet 12/21/16 Losartan Potassium [Cozaar 50 mg Tablet] 100 mg PO NOON #30 tablet 12/21/16 History of Present Illness History of Present Illness: FIDENCIO MORA is a 76 year old female with past medical history of hypertension, myocardial infarction approximately 25 years ago, GI bleed in 2010 , insomnia, depression/anxiety who reportedly woke up at approximately 6 AM. At which time patient reports that she was unable to get out of bed and asked her for assistance. She was unable to stand and ended up falling. Patient had no loss of consciousness at that time. No seizure activity was noted. Patient noted to have left upper and lower extremity weakness at that time. Patient also noted to have left facial droop. Patient recently has been started on a baby aspirin. Patient does report a history of palpitations but no overt diagnosis of atrial fibrillation. Patient was reportedly taken off of a blood pressure medication or some other heart medication yesterday. She last saw Dr. Azul her biomedical engineering technician December 04. Patient presented outside of the window for thrombolytics. Her NIH scale was 6. On CAT scan of her head, patient has an old lacunar infarct but nothing acute. She is referred to the hospitalist service for acute CVA. Hospital Course Hospital Course: Patient was admitted to [facility] and placed on telemetry. Although monitored for atrial fibrillation, none was observed. In light of this I do recommend the patient does obtain an outpatient Holter monitor or MCT. Patient underwent MRI on 12/18/2016 which revealed Right thalamic infarct. Patient was placed on Asprin , lipitor and BP controlled after 24 hours of permissive hypertension with an increase in her Cozaar. patient was found to have a UTI and initially placed on Rocephin and transitioned to Cipro. Patient had mild constipation relieved with suppository. Physical Exam Vital Signs: Temp Pulse Resp BP Pulse Ox 98.3 F 61 18 133/61 H 91 L 12/21/16 07:22 12/21/16 07:22 12/21/16 07:22 12/21/16 07:22 12/21/16 07:22 Intake & Output 12/20/16 12/21/16 12/22/16 06:59 06:59 06:59 Intake Total 938 2078 Output Total 950 900 Balance -12 1178 Weight 84.8 kg 84.8 kg Exam: General: Awake alert and oriented x3, no acute respiratory distress HEENT: AT/NC, PERRL, EOMI, oropharynx is moist, pink, no scleral icterus, no conjunctival injection Neck: No JVD, trachea midline Chest: Clear to auscultation bilaterally, no wheezes rhonchi or rales CV: Regular rate and rhythm, normal S1 and S2, 2/6 llsb murmur, no rub, no gallop Abdomen: Soft, nontender to palpation, nondistended, active bowel sounds; no rebound, rigidity, or guarding Extremities: No cyanosis, clubbing or edema Neuro: Left upper extremity 4- /5; left lower extremity 4+/5; mild left facial droop, improving; awake alert and orientedx3 Psych: Normal mood and affect Results Laboratory Results: 12/18/16 12/18/16 12/18/16 13:58 13:58 19:08 Creatine Kinase 42 48 CK-MB (CK-2) 0.58 Troponin I < 0.012 12/18/16 12/19/16 12/19/16 19:08 01:05 01:05 Creatine Kinase 60 CK-MB (CK-2) 0.60 0.84 Troponin I < 0.012 < 0.012 Impressions: Head MRI 12/18/16 00:00 IMPRESSION: FOCAL AREA OF RESTRICTED DIFFUSION IN THE RIGHT THALAMUS CONSISTENT WITH ACUTE INFARCT. ATROPHY AND CHRONIC MICRO-VASCULAR ISCHEMIC CHANGES. EVIDENCE OF ACUTE STROKE: YES. RIGHT GERMAN TUTOR Chest X-Ray 12/18/16 06:48 IMPRESSION: Mild interstitial markings which may indicate mild pulmonary edema , atypical pneumonitis, and/ or chronic interstitial lung disease. Head CT 12/18/16 06:48 IMPRESSION: No acute findings. Carotid Doppler Study 12/18/16 08:58 IMPRESSION: BILATERAL HETEROGENOUS PLAQUE. ELEVATED VELOCITIES BUT LESS THAN 50% STENOSIS. Qualifiers PATEINT BEING DISCHARGED WITH ANY OF THE FOLLOWING DIAGNOSIS?: Stroke Stroke Pt being discharged on Anti-thrombolytic therapy?: Yes Stroke Pt being discharged on Anti-coagulation therapy?: No Reason(s) for not prescribing Anti-coagulation therapy:: Not indicated - no a- fib Stroke Pt being discharged on Statins?: Yes Plan Time Spent: Less than 30 Minutes
--- NOTE | 2016-12-21 11:38 | Physician Advisory Note ---
Physician Advisor ProgressNote .: Pursuant to the plan for [facility], I have reviewed the medical record for this patient. Physician Advisor Statement: Please consider documenting: "Lt hemiparesis", rather than simply 'Lt-sided weakness' to better capture this comorbidity related to CVA. Thanks! CK
[2016-12-21] MEDS ORDERED: SERTRALINE HCL 50 MG TABLET PO SCH (12:00)
[2016-12-21] MEDS ORDERED: LOSARTAN POTASSIUM 50 MG TABLET PO SCH ×2 (12:00)
[2016-12-21 13:28] VITALS: BP 133/52
[2016-12-21] MEDS: ACETAMINOPHEN 325 MG TABLET PO PRN (13:33)
== END 2016-12-21 14:42 | DRG 65 ==
LOC: ER 06:46 → EH 08:03 → UNDOADMIN 08:03 → EH 08:55 → 3W 10:25
PROVIDERS: ADMIT Family Medicine; ATTEND Family Medicine
DX: I63.512 Cerebral infarction due to unspecified occlusion or stenosis of left middle cerebral artery (principal); G81.94 Hemiplegia, unspecified affecting left nondominant side; N30.00 Acute cystitis without hematuria; I10 Essential (primary) hypertension; E78.5 Hyperlipidemia, unspecified; I25.10 Atherosclerotic heart disease of native coronary artery without angina pectoris; F01.50 Vascular dementia, unspecified severity, without behavioral disturbance, psychotic disturbance, mood disturbance, and anxiety; E66.9 Obesity, unspecified; K59.00 Constipation, unspecified; M19.90 Unspecified osteoarthritis, unspecified site; Z79.82 Long term (current) use of aspirin; Z79.899 Other long term (current) drug therapy; I25.2 Old myocardial infarction; Z95.5 Presence of coronary angioplasty implant and graft; Z87.891 Personal history of nicotine dependence; Z88.2 Allergy status to sulfonamides; Z88.8 Allergy status to other drugs, medicaments and biological substances; Z68.30 Body mass index [BMI] 30.0-30.9, adult
CPT/HCPCS: 36415; 70450; 70551; 71010; 80053; 80061; 81001; 82550; 82553; 82962; 83036; 84484; 85025; 85610; 85730; 87086; 87088; 87186; 93005; 93010; 93306; 93880; 99285; G8978-GP; G8979-GP; G8987-GO; G8988-GO; G8999-GN; G9186-GN; J0696; J1644; J3490

== ENCOUNTER 2018-04-26 12:40 | Emergency (ER) | payer MEDICARE, OTHER ==
--- NOTE | 2018-04-26 13:22 | ER Document Report ---
ED Dizziness/Weakness - General Chief Complaint: General Weakness Stated Complaint: ABDOMINAL PAIN Time Seen by Provider: 04/26/18 13:01 Notes: 77-year-old female to the emergency department for evaluation of chest pain, weakness and dizziness. Went to primary care doctor's office and blood pressure was noted to be low. IV was established. Fluid bolus given. Patient transported to the hospital by ambulance. Patient denies any symptoms at this time. Feels weak. states that last night she was complaining of pain in the left posterior chest. Has had 3 stents placed in the past. TRAVEL OUTSIDE OF THE [place] IN LAST 30 DAYS: No - HPI Patient complains to provider of: Dizziness, Near-syncope, Weakness Onset: Just prior to arrival Onset/Duration: Gradual - Related Data Allergies/Adverse Reactions: clopidogrel [From Plavix] Allergy (Verified 12/18/16 08:02) Sulfa (Sulfonamide Antibiotics) Allergy (Verified 12/18/16 08:02) Past Medical History - General Information source: Patient, Relative - Social History Smoking Status: Former Smoker Frequency of alcohol use: None Drug Abuse: None Lives with: Spouse/Significant other Family History: CVA, Hypertension Patient has suicidal ideation: No Patient has homicidal ideation: No - Past Medical History Cardiac Medical History: Reports: Hx Coronary Artery Disease, Hx Heart Attack, Hx Hypercholesterolemia, Hx Hypertension Renal/ Medical History: Denies: Hx Peritoneal Dialysis Musculoskeletal Medical History: Reports Hx Arthritis Psychiatric Medical History: Reports: Hx Depression Past Surgical History: Reports: Hx Cardiac Catheterization, Hx Coronary Stent - Approximately 25 years ago with balloon angioplasty/stent in [place], [facility] - Cataract surgery - Immunizations Hx Pneumococcal Vaccination: 11/07/16 Review of Systems - Review of Systems Notes: Constitutional: denies: Chills, Diaphoresis, Fever, complains of weakness and malaise EENT: denies: Eye discharge, Blurred vision, Tearing, Double vision, Nose congestion, Nose discharge, Throat swelling, Mouth pain Cardiovascular: denies: Palpitations, Heart racing, Orthopnea, Dyspnea, Chest pain Respiratory: denies: Cough, Hurts to breathe, Wheezing, Shortness of breath Gastrointestinal: denies: Abdominal pain, Diarrhea, Nausea, Vomiting, complains of black tarry stools. Genitourinary: denies: Burning, Dysuria, Discharge, Frequency, Flank pain, Hematuria. Complains of concentrated and foul-smelling urine. Musculoskeletal: denies: Joint pain, Joint swelling, Muscle pain, Muscle stiffness, back pain Hematologic/Lymphatic: denies: Anemia, Easy bleeding, Easy bruising, Blood clots Neurological/Psychological: denies: Confusion, Dementia, Depression, Loss of consciousness Skin: No lesions, no masses, no skin breakdown, no abscesses Physical Exam - Vital signs Vitals: Temp Pulse Resp BP Pulse Ox 97.8 F 67 19 123/41 L 97 04/26/18 12:46 04/26/18 12:46 04/26/18 12:46 04/26/18 12:46 04/26/18 12:46 Interpretation: Normal - General General appearance: Appears well, Alert - HEENT Head: Normocephalic, Atraumatic Eyes: Normal Pupils: PERRL - Respiratory Respiratory status: No respiratory distress Chest status: Nontender Breath sounds: Normal Chest palpation: Normal - Cardiovascular Rhythm: Regular Heart sounds: Normal auscultation Murmur: No - Abdominal Inspection: Normal Distension: No distension Bowel sounds: Normal Tenderness: Nontender Organomegaly: No organomegaly - Rectal Stool: Black - Back Back: Normal, Nontender - Extremities General upper extremity: Normal inspection, Nontender, Normal color, Normal ROM , Normal temperature General lower extremity: Normal inspection, Nontender, Normal color, Normal ROM , Normal temperature, Normal weight bearing. No: Jose G's sign - Neurological Neuro grossly intact: Yes Cognition: Confused Hallowell Coma Scale Eye Opening: Spontaneous Anna Coma Scale Verbal: Oriented Hallowell Coma Scale Motor: Obeys Commands Hallowell Coma Scale Total: 15 Speech: Normal Motor strength normal: LUE, RUE, LLE, RLE Sensory: Normal - Psychological Associated symptoms: Normal affect, Normal mood - Skin Skin Temperature: Warm Skin Moisture: Dry Skin Color: Pale Course - Re-evaluation Re-evalutation: 04/26/18 14:19 Patient pale, hypotensive. Received IV fluids. At this time she has black tarry stool occult blood positive. Likely GI bleed. Does have elevated WBC count. Did have some abdominal pain. Will start transfusion. Will start Protonix. 04/26/18 15:01 No GI is available. Will need to be transferred. Attempting to find accepting hospital at this time. 04/26/18 15:21 Dr. [facility] Pending transfer at this time. 04/26/18 16:10 She getting transfusion at this time. CT scan has been performed. Results are still pending however I did look at the CT scan did not see anything grossly obvious. Awaiting transport at this time. Dr. Botello is in the ER and is attending at this time she is aware of the patient in the event that anything is needed. - Vital Signs Vital signs: Temp Pulse Resp BP Pulse Ox 97.8 F 67 19 123/41 L 97 04/26/18 12:46 04/26/18 12:46 04/26/18 12:46 04/26/18 12:46 04/26/18 12:46 - Laboratory Result Diagrams: 04/26/18 12:50 04/26/18 12:50 Laboratory results interpreted by me: 04/26/18 04/26/18 04/26/18 12:50 12:50 12:50 WBC 11.1 H RBC 2.29 L Hgb 7.4 L Hct 21.9 L RDW 14.3 H Seg Neutrophils % 82.7 H Lymphocytes % 9.8 L Absolute Neutrophils 9.2 H Potassium 3.4 L BUN 37 H Glucose 170 H Lactic Acid 3.6 H Total Protein 5.0 L Albumin 3.1 L Urine Ascorbic Acid Crossmatch 04/26/18 04/26/18 14:41 14:45 WBC RBC Hgb Hct RDW Seg Neutrophils % Lymphocytes % Absolute Neutrophils Potassium BUN Glucose Lactic Acid Total Protein Albumin Urine Ascorbic Acid 20 H Crossmatch See Detail Critical Care Note - Critical Care Note Total time excluding time spent on procedures (mins): 60 Comments: Upper GI bleed, hypotension, consultation with specialist, coordination of transfusion. Discharge - Discharge Clinical Impression: Upper GI bleed Condition: Fair
[2018-04-26 13:27] LABS: VENOUS BLOOD BASE EXCESS 2.7 mmol/L; VENOUS BLOOD HCO3 27.7 mmol/L (20-32); VENOUS BLOOD PCO2 45.4 mmHg (35-63); VENOUS BLOOD PH 7.4 (7.30-7.42)
[2018-04-26 13:38] LABS: INTERNATIONAL RATION (INR) 1.09; PROTHROMBIN TIME 14.7 SEC (11.4-15.4)
[2018-04-26 13:39] LABS: PARTIAL THROMBOPLASTIN TIME 26.7 SEC (23.5-35.8)
[2018-04-26 13:43] LABS: ALANINE AMINOTRANSFERASE 12 U/L (9-52); ALBUMIN 3.1 g/dL (3.5-5.0); ALKALINE PHOSPHATASE 68 U/L (38-126); ANION GAP 15 (5-19); ASPARTATE AMINO TRANSFERASE 16 U/L (14-36); BILIRUBIN,DIRECT 0.1 mg/dL (0.0-0.4); BILIRUBIN,TOTAL 0.3 mg/dL (0.2-1.3); BLOOD UREA NITROGEN 37 mg/dL (7-20); CALCIUM 8.7 mg/dL (8.4-10.2); CARBON DIOXIDE 24 mmol/L (22-30); CHLORIDE 101 mmol/L (98-107); GLUCOSE 170 mg/dL (75-110); LIPASE 213.1 U/L (23-300); POTASSIUM 3.4 mmol/L (3.6-5.0); SODIUM 139.9 mmol/L (137-145)
[2018-04-26 13:47] LABS: ABSOLUTE LYMPHOCYTES (AUTO) 1.1 10^3/uL (0.5-4.7); ABSOLUTE MONOCYTES (AUTO) 0.8 10^3/uL (0.1-1.4); ABSOLUTE NEUT (AUTO) 9.2 10^3/uL (1.7-8.2); BASOPHILS % (AUTO) 0.4 % (0-2); EOSINOPHILS % (AUTO) 0.1 % (0-6); HEMATOCRIT 21.9 % (36.0-47.0); LYMPHOCYTES % (AUTO) 9.8 % (13-45); MEAN CORPUSCULAR HEMOGLOBIN 32.2 pg (27.0-33.4); MEAN CORPUSCULAR HGB CONC 33.6 g/dL (32.0-36.0); MEAN CORPUSCULAR VOLUME 96 fl (80-97); PLATELET COUNT 205 10^3/uL (150-450); RED BLOOD COUNT 2.29 10^6/uL (3.72-5.28); RED CELL DISTRIBUTION WIDTH 14.3 % (11.5-14.0); SEGMENTED NEUTROPHILS % (AUTO) 82.7 % (42-78); TOTAL CELLS COUNTED % (AUTO) 100 %; WHITE BLOOD COUNT 11.1 10^3/uL (4.0-10.5)
[2018-04-26 13:53] LABS: HEMOGLOBIN 7.4 g/dL (12.0-15.5)
[2018-04-26] MEDS ORDERED: PANTOPRAZOLE SODIUM 40 MG VIAL IV PRN ×2 (13:54→14:21)
[2018-04-26] MEDS ORDERED: NORMAL SALINE 250 ML IV PRN (13:55)
--- NOTE | 2018-04-26 14:15 | RADIOLOGY REPORT (SQ) ---
EXAM DESCRIPTION: ACUTE ABDOMEN SERIES COMPLETED DATE/TIME: 04/26/2018 2:07 pm REASON FOR STUDY: abd pain COMPARISON: None. NUMBER OF VIEWS: Three views. TECHNIQUE: Frontal chest, supine abdomen and upright/decubitus abdomen radiographic images acquired. LIMITATIONS: None. FINDINGS: CHEST: Lungs clear of infiltrates. FREE AIR: None. No abnormal gas collections. BOWEL GAS PATTERN: Nonobstructive pattern. No dilated loops or air fluid levels. CALCIFICATIONS: No suspicious calcifications. HARDWARE: None in the abdomen. SOFT TISSUES: No gross mass or suggestion of organomegaly. BONES: No acute fracture. No worrisome bone lesions. OTHER: No other significant finding. IMPRESSION: NO RADIOGRAPHIC EVIDENCE FOR ACUTE ABDOMINAL DISEASE. TECHNICAL DOCUMENTATION: JOB ID: [id number] [employer]- All Rights Reserved Reading location - IP/workstation name: [email or web address]
[2018-04-26] MEDS ORDERED: PIPERACILLIN/TAZOBACTAM 3.375 GM VIAL IV ONE (14:19)
[2018-04-26] MEDS ORDERED: PANTOPRAZOLE SODIUM 40 MG VIAL IV ONE (14:20)
[2018-04-26 15:08] LABS: APPEARANCE,URINE CLEAR; BILIRUBIN,URINE NEGATIVE (NEGATIVE); COLOR,URINE YELLOW; GLUCOSE, URINE NEGATIVE (NEGATIVE); KETONES,URINE NEGATIVE (NEGATIVE); LEUKOCYTE ESTERASE,URINE NEGATIVE (NEGATIVE); NITRITE,URINE NEGATIVE (NEGATIVE); PROTEIN,URINE NEGATIVE (NEGATIVE); URINE SPECIFIC GRAVITY 1.018; UROBILINOGEN,URINE NEGATIVE mg/dL (<2.0)
--- NOTE | 2018-04-26 16:33 | RADIOLOGY REPORT (SQ) ---
EXAM DESCRIPTION: CT ABD/PELVIS WITH IV ONLY COMPLETED DATE/TIME: 04/26/2018 3:45 pm REASON FOR STUDY: abd pain, gi bleeding COMPARISON: None. TECHNIQUE: CT scan of the abdomen and pelvis performed using helical scanning technique with dynamic intravenous contrast injection. No oral contrast. Images reviewed with lung, soft tissue, and bone windows. Reconstructed coronal and sagittal MPR images reviewed. Delayed images for evaluation of the urinary system also acquired. All images stored on PACS. All CT scanners at this facility use dose modulation, iterative reconstruction, and/or weight based d osing when appropriate to reduce radiation dose to as low as reasonably achievable (ALARA). [facility]: Dose Right [facility]: CareDose [facility]: Dose Right [facility]: Teradose 4D [facility]: [employer] CONTRAST TYPE AND DOSE: Not documented. RENAL FUNCTION: GFR > 60. RADIATION DOSE: CT Rad equipment meets quality standard of care and radiation dose reduction techniq ues were employed. CTDIvol: 13.4 - 17.5 mGy. DLP: 1740 mGy-cm.. LIMITATIONS: None. FINDINGS: LOWER CHEST: Extensive 3 vessel coronary artery calcifications. LIVER: Normal size. No masses. No dilated ducts. SPLEEN: Normal size. No focal lesions. PANCREAS: No masses. No significant calcifications. No adjacent inflammation or peripancreatic fluid collections. Pancreatic duct not dilated. GALLBLADDER: No identified stones by CT criteria. No inflammatory changes to suggest cholecystitis. ADRENAL GLANDS: No significant masses or asymmetry. RIGHT KIDNEY AND URETER: No solid masses. No significant calcifications. No hydronephrosis or hyd roureter. LEFT KIDNEY AND URETER: No solid masses. No significant calcifications. No hydronephrosis or hydr oureter. AORTA AND VESSELS: No aneurysm. No dissection. Extensive atherosclerosis of the abdominal aorta and b ranch vasculature. RETROPERITONEUM: No retroperitoneal adenopathy, hemorrhage or masses. BOWEL AND PERITONEAL CAVITY: No masses or inflammatory changes. No free fluid or peritoneal masses. Extensive sigmoid diverticulosis without evidence of acute diverticulitis. APPENDIX: Normal. PELVIS: No mass. No free fluid. Normal bladder decompressed by Wilks catheter. ABDOMINAL WALL: No masses. No hernias. BONES: No significant or acute findings. OTHER: No other significant finding. IMPRESSION: 1. No definite CT findings to explain abdominal pain or locate source of GI bleeding on non tailored CT examination. 2. Sigmoid diverticulosis without evidence of acute diverticulitis ; diverticulosis is a common sour ce of lower GI bleeding. 3. 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 TECHNICAL DOCUMENTATION: JOB ID: [id number] Quality ID # [id number]: Final reports with documentation of one or more dose reduction techniques (e.g., Au tomated exposure control, adjustment of the mA and/or kV according to patient size, use of iterative reconstruction technique) 2010 [email or web address]- All Rights Reserved Reading location - IP/workstation name: [email or web address]
[2018-04-26 20:47] VITALS: BP 106/42
--- NOTE | 2018-04-27 10:36 | EKG REPORT ---
SEVERITY:- BORDERLINE ECG - SINUS RHYTHM BORDERLINE T ABNORMALITIES, ANT-LAT LEADS : Confirmed by: Tejinder Guillen 27-Apr-2018 10:34:34
== END 2018-04-26 21:00 | disposition short-term general hospital (02) ==
LOC: ER 12:40
DX: K92.2 Gastrointestinal hemorrhage, unspecified (principal); R53.1 Weakness; R07.9 Chest pain, unspecified; R42 Dizziness and giddiness; I95.9 Hypotension, unspecified; R10.9 Unspecified abdominal pain; D72.829 Elevated white blood cell count, unspecified; I25.10 Atherosclerotic heart disease of native coronary artery without angina pectoris; I10 Essential (primary) hypertension; I25.2 Old myocardial infarction; Z95.5 Presence of coronary angioplasty implant and graft; Z87.891 Personal history of nicotine dependence; Z88.8 Allergy status to other drugs, medicaments and biological substances; Z88.2 Allergy status to sulfonamides
CPT/HCPCS: 93005; 86900; 86901; 36415; 36430; 86850; 83690; 85025; 85610; 85730; 82272; 80053; 81001; 84484; 86920; 82803; 83605; 74022; 74177; 93010; P9016; C9113; J2543; S0164

== ENCOUNTER 2019-02-22 10:36 | Inpatient (IN) | payer MEDICARE, OTHER ==
[2019-02-22 11:04] LABS: HEMOGLOBIN 12.8 g/dL (12.0-15.5); MEAN CORPUSCULAR HEMOGLOBIN 29.7 pg (27.0-33.4); MEAN CORPUSCULAR HGB CONC 33.7 g/dL (32.0-36.0); MEAN CORPUSCULAR VOLUME 88 fl (80-97); PLATELET COUNT 218 10^3/uL (150-450); RED BLOOD COUNT 4.32 10^6/uL (3.72-5.28); RED CELL DISTRIBUTION WIDTH 14.1 % (11.5-14.0); WHITE BLOOD COUNT 22.8 10^3/uL (4.0-10.5)
--- NOTE | 2019-02-22 11:08 | RADIOLOGY REPORT (SQ) ---
EXAM DESCRIPTION: CHEST SINGLE VIEW COMPLETED DATE/TIME: 02/22/2019 10:55 am REASON FOR STUDY: fever COMPARISON: 04/26/2018. EXAM PARAMETERS: NUMBER OF VIEWS: One view. TECHNIQUE: Single frontal radiographic view of the chest acquired. RADIATION DOSE: NA LIMITATIONS: None. FINDINGS: LUNGS AND PLEURA: No opacities, masses or pneumothorax. No pleural effusion. MEDIASTINUM AND HILAR STRUCTURES: No masses. Contour normal. HEART AND VASCULAR STRUCTURES: Heart normal in size. Normal vasculature. BONES: No acute findings. HARDWARE: None in the chest. OTHER: No other significant finding. IMPRESSION: NO ACUTE RADIOGRAPHIC FINDING IN THE CHEST. TECHNICAL DOCUMENTATION: JOB ID: [id number] [employer]- All Rights Reserved Reading location - IP/workstation name: [email or web address]
[2019-02-22 11:15] LABS: ALBUMIN 3.7 g/dL (3.5-5.0); ALKALINE PHOSPHATASE 86 U/L (38-126); ANION GAP 10 (5-19); ASPARTATE AMINO TRANSFERASE 24 U/L (14-36); BILIRUBIN,DIRECT 0.1 mg/dL (0.0-0.4); BILIRUBIN,TOTAL 0.8 mg/dL (0.2-1.3); BLOOD UREA NITROGEN 18 mg/dL (7-20); CALCIUM 9.2 mg/dL (8.4-10.2); CARBON DIOXIDE 26 mmol/L (22-30); CHLORIDE 95 mmol/L (98-107); GLUCOSE 147 mg/dL (75-110); POTASSIUM 3.5 mmol/L (3.6-5.0); TOTAL PROTEIN 6.2 g/dL (6.3-8.2)
[2019-02-22 11:18] LABS: PROTHROMBIN TIME 14.2 SEC (11.4-15.4)
[2019-02-22 11:25] LABS: ABSOLUTE LYMPHOCYTES# (MANUAL) 1.6 10^3/uL (0.5-4.7); ABSOLUTE MONOCYTES # (MANUAL) 0.7 10^3/uL (0.1-1.4); BAND NEUTROPHILS % (MANUAL) 4 % (3-5); BASOPHILS % (MANUAL) 0 % (0-2); EOSINOPHILS % (MANUAL) 0 % (0-6); LYMPHOCYTES % (MANUAL) 7 % (13-45); MONOCYTES % (MANUAL) 3 % (3-13); SEGMENTED NEUTROPHILS % (MAN) 86 % (42-78); TOTAL CELLS COUNTED 100
[2019-02-22 11:26] LABS: ANISOCYTOSIS SLIGHT
[2019-02-22 11:27] LABS: PLATELET COMMENT ADEQUATE
[2019-02-22 11:44] LABS: VENOUS BLOOD BASE EXCESS 2.8 mmol/L; VENOUS BLOOD HCO3 26.5 mmol/L (20-32); VENOUS BLOOD PCO2 37.6 mmHg (35-63); VENOUS BLOOD PH 7.47 (7.30-7.42)
[2019-02-22 12:08] LABS: APPEARANCE,URINE CLEAR; BILIRUBIN,URINE NEGATIVE (NEGATIVE); COLOR,URINE YELLOW; GLUCOSE, URINE NEGATIVE (NEGATIVE); KETONES,URINE NEGATIVE (NEGATIVE); LEUKOCYTE ESTERASE,URINE NEGATIVE (NEGATIVE); NITRITE,URINE NEGATIVE (NEGATIVE); PROTEIN,URINE NEGATIVE (NEGATIVE); UROBILINOGEN,URINE NEGATIVE mg/dL (<2.0)
[2019-02-22] MEDS ORDERED: NORMAL SALINE 1000 ML 1,000 ML IV ONE (12:28)
--- NOTE | 2019-02-22 12:30 | ER Document Report ---
Entered by SILVESTRE RAJAN SCRIBE 02/22/19 1101 Acting as scribe for:ROEL ORTIZ MD ED Fever - General Chief Complaint: Fever Stated Complaint: FEVER Time Seen by Provider: 02/22/19 10:44 Primary Care Provider: DHAVAL URIBE MD [Primary Care Provider] - Follow up as needed Mode of Arrival: Medic Information source: Patient, Relative Notes: Patient is a 78-year-old female who presents to the emergency department today with complaints of fevers. states he noticed the patient was very hot when he woke up this morning. Patient has no real complaints other than the fever and specifically denies any vomiting, cough, or nasal congestion. TRAVEL OUTSIDE OF THE [place] IN LAST 30 DAYS: No - Related Data Allergies/Adverse Reactions: clopidogrel [From Plavix] Allergy (Verified 02/22/19 10:57) Sulfa (Sulfonamide Antibiotics) Allergy (Verified 02/22/19 10:57) contrast dye Allergy (Uncoded 02/22/19 13:00) Hives Past Medical History - General Information source: Patient, Relative - Social History Smoking Status: Former Smoker - quit 30 years ago Cigarette use (# per day): No Chew tobacco use (# tins/day): No Smoking Education Provided: No Frequency of alcohol use: None Drug Abuse: None Lives with: Spouse/Significant other Family History: Reviewed & Not Pertinent, CVA, Hypertension - Past Medical History Cardiac Medical History: Reports: Hx Coronary Artery Disease, Hx Heart Attack, Hx Hypercholesterolemia, Hx Hypertension Musculoskeletal Medical History: Reports Hx Arthritis Psychiatric Medical History: Reports: Hx Depression Past Surgical History: Reports: Hx Abdominal Surgery - "hole in colon" repaired w/ resection--was probably perforated diverticulit, Hx Cardiac Catheterization, Hx Coronary Stent - Approximately 25 years ago with balloon angioplasty/stent in [place], Other - Cataract surgery. - Immunizations Hx Pneumococcal Vaccination: 11/07/16 Review of Systems - Review of Systems Constitutional: See HPI, Fever EENT: denies: Nose congestion Cardiovascular: No symptoms reported Respiratory: denies: Cough Gastrointestinal: denies: Vomiting Genitourinary: No symptoms reported Female Genitourinary: No symptoms reported Musculoskeletal: No symptoms reported Skin: No symptoms reported Hematologic/Lymphatic: No symptoms reported Neurological/Psychological: No symptoms reported -: Yes All other systems reviewed and negative Physical Exam - Vital signs Vitals: Temp Pulse Ox 99.5 F 92 02/22/19 10:40 02/22/19 10:40 - Notes Notes: Physical Exam: General: Alert, appears somewhat confused, has a bewildered facial expression. HEENT: Normocephalic. Atraumatic. PERRL. Extraocular movements intact. Oropharynx clear. Dry oral mucosa. Neck: Supple. Non-tender. Respiratory: No respiratory distress. Clear and equal breath sounds bilaterally. Cardiovascular: Regular rate and rhythm. Abdominal: Mild right lower quadrant tenderness to palpation. No distension. Normal Bowel Sounds. Back: No gross abnormalities. Extremities: Moves all four extremities. Upper extremities: Normal inspection. Normal ROM. Lower extremities: Normal inspection. No edema. Normal ROM. Neurological: Slightly confused. Normal speech. Answers questions appropriately. Psychological: Normal affect. Normal Mood. Skin: Hot to the touch. Dry. Normal color. Course - Vital Signs Vital signs: Temp Pulse Resp BP Pulse Ox 99.5 F 79 20 111/47 L 95 02/22/19 10:57 02/22/19 10:57 02/22/19 12:02 02/22/19 12:02 02/22/19 12:02 - Laboratory Result Diagrams: 02/22/19 09:59 02/22/19 09:59 Laboratory results interpreted by me: 02/22/19 02/22/19 02/22/19 09:59 09:59 10:47 WBC 22.8 H RDW 14.1 H Seg Neuts % (Manual) 86 H Lymphocytes % (Manual) 7 L Abs Neuts (Manual) 20.5 H VBG pH 7.47 H Sodium 131.4 L Potassium 3.5 L Chloride 95 L Glucose 147 H POC Glucose Total Protein 6.2 L 02/22/19 11:07 WBC RDW Seg Neuts % (Manual) Lymphocytes % (Manual) Abs Neuts (Manual) VBG pH Sodium Potassium Chloride Glucose POC Glucose 148 H Total Protein - Diagnostic Test Radiology reviewed: Image reviewed, Reports reviewed - Chest x-ray does not show acute changes. Noncontrast CT scan of the abdomen and pelvis shows postsurgical changes the bowel with small amount of pneumoperitoneum and soft tissue stranding adjacent to the anastomosis in the right lower quadrant, worrisome for bowel perforation. Inflammatory changes of the soft tissues adjacent to the anastomosis around small bowel loops in the right lower quadrant. Superimposed enteritis is not excluded. - EKG Interpretation by Me EKG shows normal: Sinus rhythm, Sutton, Intervals, QRS Complexes, ST-T Waves Rate: Normal - 75 Rhythm: NSR Sutton/QRS: Left axis deviation When compared to previous EKG there are: No significant change - Consults Dr. Nash Time consulted: 14:04 Consulted provider: will come to ER - Dr. Nash met with the patient and her spouse, talk with some other family members who were not present earlier. He reviewed the patient's lab work, CT scans. He feels that this is most likely not perforation and wants her to have an orally contrasted CT scan abdomen pelvis, with admission by the hospitalist group and he will be consulted. BOOM Cortez Time consulted: 15:30 Consulted provider: will come to ER Discharge - Discharge Clinical Impression: Right lower quadrant abdominal pain, Abnormal computed tomography of abdomen and pelvis Altered mental status Qualifiers: Altered mental status type: unspecified Qualified Code(s): R41.82 - Altered mental status, unspecified Fever Qualifiers: Fever type: unspecified Qualified Code(s): R50.9 - Fever, unspecified Leukocytosis Qualifiers: Leukocytosis type: bandemia Qualified Code(s): D72.825 - Bandemia Condition: Stable Disposition: ADMITTED INPATIENT Admitting Provider: Sobeida (Hospitalist) Unit Admitted: Surgical Floor Referrals: DHAVAL URIBE MD [Primary Care Provider] - Follow up as needed Scribe Attestation: 02/22/19 11:46 I personally performed the services described in the documentation, reviewed and edited the documentation which was dictated to the scribe in my presence, and it accurately records my words and actions. I personally performed the services described in the documentation, reviewed and edited the documentation which was dictated to the scribe in my presence, and it accurately records my words and actions.
[2019-02-22] MEDS ORDERED: ERTAPENEM SODIUM INJ 1 GM VIAL IV ONE (12:33)
[2019-02-22] MEDS ORDERED: RINGERS SOLUTION,LACTATED 1,000 ML IV ONE (14:06)
--- NOTE | 2019-02-22 14:15 | RADIOLOGY REPORT (SQ) ---
EXAM DESCRIPTION: CT ABD/PELVIS NO ORAL OR IV COMPLETED DATE/TIME: 02/22/2019 1:38 pm REASON FOR STUDY: RLQ pain,leukocytosis. PMH perf diverticulitis COMPARISON: CT abdomen and pelvis 04/26/2018. TECHNIQUE: CT scan of the abdomen and pelvis performed without intravenous or oral contrast. Images reviewed with lung, soft tissue, and bone windows. Reconstructed coronal and sagittal MPR images revi ewed. All images stored on PACS. All CT scanners at this facility use dose modulation, iterative reconstruction, and/or weight based d osing when appropriate to reduce radiation dose to as low as reasonably achievable (ALARA). [facility]: Dose Right [facility]: CareDose [facility]: Dose Right [facility]: Teradose 4D [facility]: [employer] RADIATION DOSE: CT Rad equipment meets quality standard of care and radiation dose reduction techniq ues were employed. CTDIvol: 7.8 mGy. DLP: 392 mGy-cm.mGy. LIMITATIONS: There is motion artifact FINDINGS: LOWER CHEST: Mild bibasilar atelectasis. NON-CONTRASTED LIVER, SPLEEN, ADRENALS: Evaluation limited by lack of IV contrast. No identified sign ificant masses. PANCREAS: No peripancreatic inflammatory changes. GALLBLADDER: Present. RIGHT KIDNEY AND URETER: There is perinephric stranding. Assessment for masses limited by lack of I V contrast. No significant calcifications. No hydronephrosis or hydroureter. LEFT KIDNEY AND URETER: There is perinephric stranding. Assessment for masses limited by lack of IV contrast. No significant calcifications. No hydronephrosis or hydroureter. AORTA AND RETROPERITONEUM: Atherosclerotic calcifications within the ectatic abdominal aorta and its branches. No retroperitoneal masses or hemorrhage. BOWEL AND PERITONEAL CAVITY: Postsurgical changes are noted at the bowel at the right lower quadrant. Small amount of free air with soft tissue stranding is present adjacent to the anastomosis at the r ight lower quadrant. The soft tissue stranding is extending from the anastomosis around small bowel loops at the right lower quadrant. No dilated bowel loops to suggest obstruction. There is colonic diverticulosis with no CT evidence for acute diverticulitis. APPENDIX: Not visualized. PELVIS, BLADDER, AND ABDOMINAL WALL:The urinary bladder is partially distended. The uterus is surgic ally absent. No free fluid. Postsurgical changes at the anterior abdominal wall. BONES: Multilevel degenerative changes at the spine. IMPRESSION: 1. Postsurgical changes at the bowel with small amount of pneumoperitoneum and soft tis ngozi stranding adjacent to the anastomosis site at the right lower quadrant, worrisome for bowel perfo ration; surgical consult recommended. Inflammatory changes at the soft tissues adjacent to the anast omosis and around small bowel loops at the right lower quadrant, superimposed enteritis is not exclud able. 2. Colonic diverticulosis. 3. Bilateral perinephric stranding, may be secondary to chronic changes versus acute infection/ infla mmation such as pyelonephritis. Please correlate with laboratory values/urinalysis. COMMENT: Pertinent findings on the imaging study reported as a CRITICAL RESULT to ROEL ORTIZ MD at14:02 hours on 02/22/2019. Category of Critical Result: Postsurgical changes at the bowel with small amount of pneumoperitoneum and soft tissue stranding adjacent to the anastomosis site at the right lower quadrant, worrisome for bowel perforation; surgical consult recommended. Inflammatory changes at the soft tissues adjacent to the anastomosis and around small bowel loops at the right lower quadrant, superimposed enteritis i s not excludable. Quality ID # [id number]: Final reports with documentation of one or more dose reduction techniques (e.g., Au tomated exposure control, adjustment of the mA and/or kV according to patient size, use of iterative reconstruction technique) TECHNICAL DOCUMENTATION: JOB ID: [id number] [employer]- All Rights Reserved Reading location - IP/workstation name: [email or web address]
[2019-02-22] MEDS ORDERED: DEXTROSE 50%-WATER 25 GM/50 ML DISP.SYRIN IV PRN ×4 (15:55→16:09)
[2019-02-22] MEDS ORDERED: ONDANSETRON 4 MG TAB.RAPDIS PO PRN (15:55)
[2019-02-22] MEDS ORDERED: DEXTROSE 40% GEL 15 GM TUBE PO PRN ×4 (15:55→16:09)
[2019-02-22] MEDS ORDERED: GLUCAGON,HUMAN RECOMB 1 MG INJ SUBCUT PRN (15:55)
[2019-02-22] MEDS ORDERED: ONDANSETRON HCL INJ/PF 4 MG/2 ML SDV IV PRN (15:55)
[2019-02-22] MEDS ORDERED: ACETAMINOPHEN 325 MG TABLET PO PRN (15:55)
[2019-02-22] MEDS ORDERED: GLUCAGON,HUMAN RECOMB 1 MG INJ IM PRN (16:09)
--- NOTE | 2019-02-22 16:46 | PDOC CONSULTATION ---
Consultation Consult Date: 02/22/19 Provider Consulted: WESTON DE LA CRUZ Consult reason:: Intraperitoneal air History of Present Illness Admission Date/PCP: 02/22/19 15:47 DHAVAL URIBE MD History of Present Illness: FIDENCIO MORA is a 78 year old female, demented, poorly mobile, history of stroke years ago with decreased mental status loss of memory and partial aphasia, status post cardiac stent placement x3 years ago, status post abdominal surgery with bowel resection and primary anastomosis in August 2018 for bowel necrosis. She presents to the emergency room with a history of fever (temperature 101) and white blood cell 22,000. A CT scan of the abdomen pelvis was done which revealed a the presence of a pocket of localized, extraluminal air located in the right lower quadrant by the recently done surgical stapled anastomosis. She has no nausea vomiting, she does not report abdominal pain, has had one bowel movement during the past 24 hours with normal-appearing stools, no diarrhea or hematochezia reported. She has a history of severe peptic ulcer disease and GERD. During the interview, patient is unable to recollect recent events or to report symptoms, or to give any history of her medical conditions. Most of the history is obtained from her family (particularly her son). Also, her son reports that the mom has been very poorly mobile and independent to do in the past year or so, more often she is unable to ambulate except for very short distances, she is very forgetful, and she needs constant supervision by the or her son. Past Medical History Cardiac Medical History: Reports: Coronary Artery Disease, Myocardial Infarction, Hyperlipidema, Hypertension Musculoskeltal Medical History: Reports: Arthritis Psychiatric Medical History: Reports: Depression Past Surgical History Past Surgical History: Reports: Cardiac Catheterization, Coronary Stent - Approximately 25 years ago with balloon angioplasty/stent in [place], Other - Cataract surgery. Social History Lives with: Spouse/Significant other Smoking Status: Former Smoker - quit 30 years ago Electronic Cigarette use?: No Frequency of Alcohol Use: Occasional Hx Recreational Drug Use: No Hx Prescription Drug Abuse: No Family History Family History: Reviewed & Not Pertinent, CVA, Hypertension Parental Family History Reviewed: No Children Family History Reviewed: No Sibling(s) Family History Reviewed.: No Medication/Allergy Home Medications: Memantine HCl [Namenda] 5 mg PO DAILY 12/18/16 Risperidone [Risperdal 1 mg Tablet] 1 mg PO QHS 12/18/16 Sertraline HCl [Zoloft 50 mg Tablet] 50 mg PO DAILY 12/18/16 Aspirin [Ecotrin 325 mg EC Tablet] 325 mg PO DAILY #90 tabec 12/21/16 Atorvastatin Calcium [Lipitor 40 mg Tablet] 40 mg PO QHS #30 tablet 12/21/16 Ciprofloxacin HCl [Cipro 250 mg Tablet] 1 tab PO BID #10 tab 12/21/16 Docusate Sodium [Colace 100 mg Capsule] 100 mg PO BID #60 capsule 12/21/16 Famotidine [Pepcid 20 mg Tablet] 20 mg PO Q12 #60 tablet 12/21/16 Losartan Potassium [Cozaar 50 mg Tablet] 100 mg PO NOON #30 tablet 12/21/16 Allergies/Adverse Reactions: clopidogrel [From Plavix] Allergy (Verified 02/22/19 10:57) Sulfa (Sulfonamide Antibiotics) Allergy (Verified 02/22/19 10:57) contrast dye Allergy (Uncoded 02/22/19 13:00) Hives Physical Exam Vital Signs: Temp Pulse Resp BP Pulse Ox 99.5 F 79 16 126/52 H 100 02/22/19 10:57 02/22/19 10:57 02/22/19 15:01 02/22/19 15:00 02/22/19 15:01 Intake & Output 02/21/19 02/22/19 02/23/19 06:59 06:59 06:59 Intake Total 1999 Balance 1999 Weight 75.7 kg General appearance: PRESENT: no acute distress Head exam: PRESENT: atraumatic, normocephalic Eye exam: PRESENT: conjunctiva pink, EOMI Mouth exam: PRESENT: moist, neck supple Teeth exam: PRESENT: edentulous - Upper and lower dentures Neck exam: PRESENT: full ROM Respiratory exam: PRESENT: chest wall tenderness Cardiovascular exam: PRESENT: RRR Vascular exam: PRESENT: normal capillary refill GI/Abdominal exam: PRESENT: normal bowel sounds, soft - Not distended, not tender on superficial or deep palpation of all 4 quadrants, no grimacing, no guarding, no abdominal wall tenting during palpation, other - Presence of old mid line well-healed surgical scar Rectal exam: PRESENT: deferred Extremities exam: PRESENT: full ROM - All 4 extremities have much decreased range of motion Neurological exam: PRESENT: altered - Follows commands partially, unable to recollect recent events or to report symptoms, CN II-XII grossly intact, aphasic - Partially aphasic Results Laboratory Results: 02/22/19 09:59 02/22/19 09:59 02/22/19 02/22/19 02/22/19 09:59 09:59 10:47 WBC 22.8 H RBC 4.32 Hgb 12.8 Hct 38.0 MCV 88 MCH 29.7 MCHC 33.7 RDW 14.1 H Plt Count 218 Seg Neutrophils % Not Reportable VBG pH VBG pCO2 VBG HCO3 VBG Base Excess Sodium 131.4 L Potassium 3.5 L Chloride 95 L Carbon Dioxide 26 Anion Gap 10 BUN 18 Creatinine 0.91 Est GFR ( Amer) > 60 Glucose 147 H Lactic Acid 1.4 Calcium 9.2 Total Bilirubin 0.8 AST 24 Alkaline Phosphatase 86 Total Protein 6.2 L Albumin 3.7 Urine Color Urine Appearance Urine pH Ur Specific [place] Urine Protein Urine Glucose (UA) Urine Ketones Urine Blood Urine Nitrite Ur Leukocyte Esterase Urine WBC (Auto) Urine RBC (Auto) 02/22/19 02/22/19 10:47 11:34 WBC RBC Hgb Hct MCV MCH MCHC RDW Plt Count Seg Neutrophils % VBG pH 7.47 H VBG pCO2 37.6 VBG HCO3 26.5 VBG Base Excess 2.8 Sodium Potassium Chloride Carbon Dioxide Anion Gap BUN Creatinine Est GFR ( Amer) Glucose Lactic Acid Calcium Total Bilirubin AST Alkaline Phosphatase Total Protein Albumin Urine Color YELLOW Urine Appearance CLEAR Urine pH 5.0 Ur Specific [place] 1.020 Urine Protein NEGATIVE Urine Glucose (UA) NEGATIVE Urine Ketones NEGATIVE Urine Blood NEGATIVE Urine Nitrite NEGATIVE Ur Leukocyte Esterase NEGATIVE Urine WBC (Auto) 3 Urine RBC (Auto) 1 02/22/19 09:59 Troponin I 0.012 Impressions: Chest X-Ray 02/22/19 10:44 IMPRESSION: NO ACUTE RADIOGRAPHIC FINDING IN THE CHEST. Abdomen/Pelvis CT 02/22/19 12:28 IMPRESSION: 1. Postsurgical changes at the bowel with small amount of pneumo peritoneum and soft tissue stranding adjacent to the anastomosis site at the right lower quadrant, worrisome for bowel perforation; surgical consult recommended. Inflammatory changes at the soft tissues adjacent to the anastomosis and around small bowel loops at the right lower quadrant, superimpos ed enteritis is not excludable. 2. Colonic diverticulosis. 3. Bilateral perinephric stranding, may be secondary to chronic changes versus acute infection/ inflammation such as pyelonephritis. Please correlate with laboratory values/urinalysis. Assessment & Plan - Diagnosis (1) Abnormal computed tomography of abdomen and pelvis Is this a current diagnosis for this admission?: Yes (2) Altered mental status Qualifiers: Altered mental status type: unspecified Qualified Code(s): R41.82 - Altered mental status, unspecified Is this a current diagnosis for this admission?: Yes - Plan Summary Plan Summary: Assessment: 78-year-old female with severe neurological impairment (aphasia, disorientation, poor mobility, loss of memory) due to previous stroke, possible dementia Status post a coronary artery stent x3 several years ago Fever at home of 101.0 (99.5 in the ED) Leukocytosis 22,000, no bandemia identified in the white blood cell count differential Normal lactic acid Recent abdominal surgery with bowel resection and stapled anastomosis in the right lower quadrant (August 2018) for unspecified bowel necrosis Today's CT scan abdomen pelvis reveals a small size, single pocket of air in the right lower quadrant near the recent anastomosis I believe the CT scan findings represent either a contained microperforation at the level of the anastomosis or a lingering phlegmonous process near the anastomosis itself The patient has no complaints or grimacing during the interview and physical exam, respectively Her abdominal physical exam is unremarkable and has no peritoneal signs are identified Normal bowel function Plan: Due to the above, I believe that the patient can be treated conservatively with n.p.o. status, IV fluids, and broad-spectrum IV antibiotics. Line Admission by the hospitalist service In addition, in her current status I believe the patient is a high surgical risk due to her significantly compromised mental status, age, and heart condition. My concerns have been conveyed to the family, their questions have been answered to their satisfaction, and they agree with the current therapeutic course. There has been has voiced not interest in any surgery at this time.
--- NOTE | 2019-02-22 17:47 | PDOC H&P ---
History of Present Illness Admission Date/PCP: 02/22/19 15:47 DHAVAL URIBE MD History of Present Illness: FIDENCIO MORA is a 78 year old female who was seen in the emergency room fo r abdominal pain. Unfortunately due to dementia patient is a poor historian, however according to the ER provider as well as the ER nurse the patient woke up around 0330 this morning to go to the bathroom and was noticeably weak. of the patient felt that the patient was also febrile, her temperature and it was reportedly 101. According to the nurse there is been no vomiting either in the ER or by recent history. In the emergency room her admission temperature is 99.5, initial blood pressure 110/58, pulse of 81, oxygen saturation 100% on 2 L nasal cannula Review of the chart shows that back in April 2018 patient was in our ER and had a CT of the abdomen for abdominal pain and a GI bleed. At that time it was thought that she had perforated a diverticular, as a source of the bleed. According to the nurse sometime in either August or September of this year she did have surgery for " bowel". Evidently she had resection of necrotic bowel and re- anastomosis though surgery was not done here at this hospital. Patient now has a CT scan without contrast that shows air in the right lower quadrant of the abdomen near the anastomosis as well as stranding around the kidneys. Suspicious for either a lingering abscess or a perforation of the bowel. Patient has a leukocytosis with a white count of 22,800. Chest x-ray is negative for acute cardiopulmonary disease, KG shows no acute findings, urinalysis is negative for infection. Patient has been seen by general surgery who is recommended a CT of the abdomen and pelvis with oral contrast to be done possibly tomorrow, based on patient's clinical presentation at that time. Will be placed on IV antibiotics and kept n.p.o.. Family has been out of the ER now for 2 hours and I am unable to reconcile her medications that are in the chart. As soon as her home meds have been verified I will order them as needed. I have seen the patient at 1530 hours, her blood pressure is 126/52, her pulse is 64, O2 sat is 96% on room air. She appears to be medically stable to be admitted to the surgical floor for close observation. Past Medical History Cardiac Medical History: Reports: Coronary Artery Disease, Myocardial Infarction, Hyperlipidema, Hypertension GI Medical History: Reports: Diverticulitis Musculoskeltal Medical History: Reports: Arthritis Psychiatric Medical History: Reports: Dementia, Depression Past Surgical History Past Surgical History: Reports: Cardiac Catheterization, Coronary Stent - Approximately 25 years ago with balloon angioplasty/stent in [place], Other - Cataract surgery. Social History Lives with: Spouse/Significant other Smoking Status: Former Smoker - quit 30 years ago Electronic Cigarette use?: No Frequency of Alcohol Use: Occasional Hx Recreational Drug Use: No Hx Prescription Drug Abuse: No - Advance Directive Resuscitation Status: Full Code Family History Family History: Reviewed & Not Pertinent, CVA, Hypertension Parental Family History Reviewed: No Children Family History Reviewed: No Sibling(s) Family History Reviewed.: No Medication/Allergy Home Medications: Memantine HCl [Namenda] 5 mg PO DAILY 12/18/16 Risperidone [Risperdal 1 mg Tablet] 1 mg PO QHS 12/18/16 Sertraline HCl [Zoloft 50 mg Tablet] 50 mg PO DAILY 12/18/16 Aspirin [Ecotrin 325 mg EC Tablet] 325 mg PO DAILY #90 tabec 12/21/16 Atorvastatin Calcium [Lipitor 40 mg Tablet] 40 mg PO QHS #30 tablet 12/21/16 Ciprofloxacin HCl [Cipro 250 mg Tablet] 1 tab PO BID #10 tab 12/21/16 Docusate Sodium [Colace 100 mg Capsule] 100 mg PO BID #60 capsule 12/21/16 Famotidine [Pepcid 20 mg Tablet] 20 mg PO Q12 #60 tablet 12/21/16 Losartan Potassium [Cozaar 50 mg Tablet] 100 mg PO NOON #30 tablet 12/21/16 Allergies/Adverse Reactions: clopidogrel [From Plavix] Allergy (Verified 02/22/19 10:57) Sulfa (Sulfonamide Antibiotics) Allergy (Verified 02/22/19 10:57) contrast dye Allergy (Uncoded 02/22/19 13:00) Hives Review of Systems Constitutional: PRESENT: fever(s) Respiratory: ABSENT: cough, hemoptysis Gastrointestinal: ABSENT: abdominal pain, constipation, diarrhea, hematemesis, hematochezia, nausea, vomiting Physical Exam Vital Signs: Temp Pulse Resp BP Pulse Ox 99.5 F 79 16 126/52 H 100 02/22/19 10:57 02/22/19 10:57 02/22/19 15:01 02/22/19 15:00 02/22/19 15:01 Intake & Output 02/21/19 02/22/19 02/23/19 06:59 06:59 06:59 Intake Total 1999 Balance 1999 Weight 75.7 kg General appearance: PRESENT: no acute distress, other - Confused and or demented Respiratory exam: PRESENT: clear to auscultation ric. ABSENT: rales, rhonchi, wheezes Cardiovascular exam: PRESENT: RRR. ABSENT: diastolic murmur, rubs, systolic murmur GI/Abdominal exam: PRESENT: normal bowel sounds, soft, other - Well healed midline abdominal incision Soft bruit heard to the right of the midline just above the umbilicus Neurological exam: PRESENT: alert, oriented to place, other - Patient is unable to tell me her date of ,, she is unable to tell me the city she is in. Patient is unable to tell me where she was born Psychiatric exam: PRESENT: flat affect Results Laboratory Results: 02/22/19 09:59 02/22/19 09:59 02/22/19 02/22/19 02/22/19 09:59 09:59 09:59 WBC 22.8 H RBC 4.32 Hgb 12.8 Hct 38.0 MCV 88 MCH 29.7 MCHC 33.7 RDW 14.1 H Plt Count 218 Seg Neutrophils % Not Reportable VBG pH VBG pCO2 VBG HCO3 VBG Base Excess Sodium 131.4 L Potassium 3.5 L Chloride 95 L Carbon Dioxide 26 Anion Gap 10 BUN 18 Creatinine 0.91 Est GFR ( Amer) > 60 Glucose 147 H Lactic Acid Calcium 9.2 Total Bilirubin 0.8 AST 24 Alkaline Phosphatase 86 Total Protein 6.2 L Albumin 3.7 Amylase 78 Lipase 157.1 Urine Color Urine Appearance Urine pH Ur Specific [place] Urine Protein Urine Glucose (UA) Urine Ketones Urine Blood Urine Nitrite Ur Leukocyte Esterase Urine WBC (Auto) Urine RBC (Auto) 02/22/19 02/22/19 02/22/19 10:47 10:47 11:34 WBC RBC Hgb Hct MCV MCH MCHC RDW Plt Count Seg Neutrophils % VBG pH 7.47 H VBG pCO2 37.6 VBG HCO3 26.5 VBG Base Excess 2.8 Sodium Potassium Chloride Carbon Dioxide Anion Gap BUN Creatinine Est GFR ( Amer) Glucose Lactic Acid 1.4 Calcium Total Bilirubin AST Alkaline Phosphatase Total Protein Albumin Amylase Lipase Urine Color YELLOW Urine Appearance CLEAR Urine pH 5.0 Ur Specific [place] 1.020 Urine Protein NEGATIVE Urine Glucose (UA) NEGATIVE Urine Ketones NEGATIVE Urine Blood NEGATIVE Urine Nitrite NEGATIVE Ur Leukocyte Esterase NEGATIVE Urine WBC (Auto) 3 Urine RBC (Auto) 1 02/22/19 09:59 Troponin I 0.012 Impressions: Chest X-Ray 02/22/19 10:44 IMPRESSION: NO ACUTE RADIOGRAPHIC FINDING IN THE CHEST. Abdomen/Pelvis CT 02/22/19 12:28 IMPRESSION: 1. Postsurgical changes at the bowel with small amount of pneumoperitoneum and soft tissue stranding adjacent to the anastomosis site at the right lower quadrant, worrisome for bowel perforation; surgical consult recommended. Inflammatory changes at the soft tissues adjacent to the anastomosis and around small bowel loops at the right lower quadrant, superimposed enteritis is not excludable. 2. Colonic diverticulosis. 3. Bilateral perinephric stranding, may be secondary to chronic changes versus acute infection/ inflammation such as pyelonephritis. Please correlate with laboratory values/urinalysis. Assessment and Plan - Diagnosis (1) Abnormal computed tomography of abdomen and pelvis Is this a current diagnosis for this admission?: Yes (2) Altered mental status Qualifiers: Altered mental status type: unspecified Qualified Code(s): R41.82 - Altered mental status, unspecified Is this a current diagnosis for this admission?: Yes (3) Fever Qualifiers: Fever type: unspecified Qualified Code(s): R50.9 - Fever, unspecified Is this a current diagnosis for this admission?: Yes (4) Leukocytosis Qualifiers: Leukocytosis type: bandemia Qualified Code(s): D72.825 - Bandemia Is this a current diagnosis for this admission?: Yes (5) CVA (cerebral vascular accident) Qualifiers: CVA mechanism: stenosis Precerebral and cerebral artery: posterior cerebral artery Laterality of affected vessel: left Qualified Code(s): I63.532 - Cerebral infarction due to unspecified occlusion or stenosis of left posterior cerebral artery Is this a current diagnosis for this admission?: Yes (6) Coronary artery disease Qualifiers: Coronary Disease-Associated Artery/Lesion type: unspecified vessel or lesion type [place] vs. transplanted heart: [place] heart Associated angina: without angina Qualified Code(s): I25.10 - Atherosclerotic heart disease of [place] coronary artery without angina pectoris Is this a current diagnosis for this admission?: Yes (7) Dementia Qualifiers: Dementia type: vascular dementia Dementia behavioral disturbance: without behavioral disturbance Qualified Code(s): F01.50 - Vascular dementia without behavioral disturbance Is this a current diagnosis for this admission?: Yes (8) Hx of heart artery stent Is this a current diagnosis for this admission?: Yes - Plan Summary Summary: 02/22/2019. Patient's CT scan of the abdomen and pelvis without contrast shows small amount of air and soft tissue stranding at the anastomosis site in the right lower quadrant also inflammatory changes of the soft tissue at that site in addition there is bilateral perinephric stranding. General surgery has reviewed the studies and spent a great deal of time discussing the case with the family. This time he feels a conservative approach is best with careful observation and reassessing the patient early. Patient will be placed on her home medications as indicated and started on IV antibiotics, kept n.p.o. until further notice. - Time Time Spent with patient: 35 or more minutes
[2019-02-22] MEDS: NORMAL SALINE 1000 ML 1,000 ML IV PRN (19:40)
[2019-02-22] MEDS ORDERED: PIPERACILLIN/TAZOBACTAM 3.375 GM VIAL IV ONE (21:03)
[2019-02-22] MEDS: INSULIN LISPRO 100 UNIT/ML 3 ML VIAL SUBCUT SCH (21:30)
[2019-02-22] MEDS: ATORVASTATIN CALCIUM 40 MG TABLET PO SCH (21:32)
[2019-02-22] MEDS: PIPERACILLIN SODIUM/TAZOBACTAM 3.375 GM in NORMAL SALINE 100 ML IV SCH (21:32)
[2019-02-22] MEDS: FAMOTIDINE INJ/PF 20 MG/2 ML SDV IV SCH (21:32)
--- NOTE | 2019-02-22 22:39 | EKG REPORT ---
SEVERITY:- OTHERWISE NORMAL ECG - SINUS RHYTHM BORDERLINE LEFT AXIS DEVIATION : Confirmed by: Soha Bennett MD 22-Feb-2019 22:38:33
[2019-02-22] MEDS: RISPERIDONE 1 MG TABLET PO SCH (23:25)
[2019-02-23] MEDS ORDERED: PIPERACILLIN/TAZOBACTAM 3.375 GM VIAL IV ONE (02:21)
[2019-02-23] MEDS ORDERED: LORAZEPAM INJ 2 MG/1 ML VIAL IV PRN (02:40)
[2019-02-23] MEDS: PIPERACILLIN SODIUM/TAZOBACTAM 3.375 GM in NORMAL SALINE 100 ML IV SCH ×4 (02:53→20:25)
[2019-02-23 05:21] LABS: ABSOLUTE MONOCYTES (AUTO) 0.9 10^3/uL (0.1-1.4); ABSOLUTE NEUT (AUTO) 12.6 10^3/uL (1.7-8.2); BASOPHILS % (AUTO) 0.3 % (0-2); EOSINOPHILS % (AUTO) 0.2 % (0-6); HEMOGLOBIN 11.1 g/dL (12.0-15.5); LYMPHOCYTES % (AUTO) 6.7 % (13-45); MEAN CORPUSCULAR HEMOGLOBIN 29.8 pg (27.0-33.4); MEAN CORPUSCULAR HGB CONC 33.5 g/dL (32.0-36.0); MEAN CORPUSCULAR VOLUME 89 fl (80-97); MONOCYTES % (AUTO) 6.5 % (3-13); PLATELET COUNT 155 10^3/uL (150-450); RED BLOOD COUNT 3.71 10^6/uL (3.72-5.28); RED CELL DISTRIBUTION WIDTH 14.1 % (11.5-14.0); SEGMENTED NEUTROPHILS % (AUTO) 86.3 % (42-78); TOTAL CELLS COUNTED % (AUTO) 100 %; WHITE BLOOD COUNT 14.6 10^3/uL (4.0-10.5)
[2019-02-23 05:48] LABS: ANION GAP 7 (5-19); BLOOD UREA NITROGEN 14 mg/dL (7-20); CALCIUM 8.4 mg/dL (8.4-10.2); CARBON DIOXIDE 26 mmol/L (22-30); CHLORIDE 102 mmol/L (98-107); GLUCOSE 125 mg/dL (75-110); POTASSIUM 3.3 mmol/L (3.6-5.0)
[2019-02-23] MEDS: INSULIN LISPRO 100 UNIT/ML 3 ML VIAL SUBCUT SCH ×4 (08:07→23:45)
[2019-02-23] MEDS: POTASSI CL 20 MEQ/50 ML RIDER 20 MEQ/50 ML RTUPB IV SCH ×3 (08:07→13:40)
--- NOTE | 2019-02-23 10:26 | PDOC PROGRESS REPORT ---
Subjective Progress Note for:: 02/23/19 Reason For Visit: ABDOMINAL PAIN,FEVER,CORONARY ARTERY DISEASE Patient squirming in bed; follows some commands. Physical Exam Vital Signs: Temp Pulse Resp BP Pulse Ox 98.3 F 61 20 135/39 H 95 02/23/19 07:26 02/23/19 07:26 02/23/19 07:26 02/23/19 07:26 02/23/19 07:26 Intake & Output 02/22/19 02/23/19 02/24/19 06:59 06:59 06:59 Intake Total 2250 Balance 2250 Weight 76.8 kg General appearance: PRESENT: no acute distress, other - No fever overnight GI/Abdominal exam: PRESENT: other - Abdomen is not distended. Bowel sounds are hypoactive. There is some localized tenderness but no guarding, or rebound. Neurological exam: PRESENT: other - Patient disoriented Results Laboratory Results: 02/23/19 04:58 02/23/19 04:58 02/22/19 02/22/19 02/22/19 09:59 09:59 09:59 WBC 22.8 H RBC 4.32 Hgb 12.8 Hct 38.0 MCV 88 MCH 29.7 MCHC 33.7 RDW 14.1 H Plt Count 218 Seg Neutrophils % Not Reportable VBG pH VBG pCO2 VBG HCO3 VBG Base Excess Sodium 131.4 L Potassium 3.5 L Chloride 95 L Carbon Dioxide 26 Anion Gap 10 BUN 18 Creatinine 0.91 Est GFR ( Amer) > 60 Glucose 147 H Lactic Acid Calcium 9.2 Magnesium Total Bilirubin 0.8 AST 24 Alkaline Phosphatase 86 Total Protein 6.2 L Albumin 3.7 Amylase 78 Lipase 157.1 Urine Color Urine Appearance Urine pH Ur Specific [place] Urine Protein Urine Glucose (UA) Urine Ketones Urine Blood Urine Nitrite Ur Leukocyte Esterase Urine WBC (Auto) Urine RBC (Auto) 02/22/19 02/22/19 02/22/19 10:47 10:47 11:34 WBC RBC Hgb Hct MCV MCH MCHC RDW Plt Count Seg Neutrophils % VBG pH 7.47 H VBG pCO2 37.6 VBG HCO3 26.5 VBG Base Excess 2.8 Sodium Potassium Chloride Carbon Dioxide Anion Gap BUN Creatinine Est GFR ( Amer) Glucose Lactic Acid 1.4 Calcium Magnesium Total Bilirubin AST Alkaline Phosphatase Total Protein Albumin Amylase Lipase Urine Color YELLOW Urine Appearance CLEAR Urine pH 5.0 Ur Specific [place] 1.020 Urine Protein NEGATIVE Urine Glucose (UA) NEGATIVE Urine Ketones NEGATIVE Urine Blood NEGATIVE Urine Nitrite NEGATIVE Ur Leukocyte Esterase NEGATIVE Urine WBC (Auto) 3 Urine RBC (Auto) 1 02/23/19 02/23/19 04:58 04:58 WBC 14.6 H RBC 3.71 L Hgb 11.1 L Hct 33.0 L MCV 89 MCH 29.8 MCHC 33.5 RDW 14.1 H Plt Count 155 Seg Neutrophils % 86.3 H VBG pH VBG pCO2 VBG HCO3 VBG Base Excess Sodium 134.9 L Potassium 3.3 L Chloride 102 Carbon Dioxide 26 Anion Gap 7 BUN 14 Creatinine 0.84 Est GFR ( Amer) > 60 Glucose 125 H Lactic Acid Calcium 8.4 Magnesium 1.9 Total Bilirubin AST Alkaline Phosphatase Total Protein Albumin Amylase Lipase Urine Color Urine Appearance Urine pH Ur Specific [place] Urine Protein Urine Glucose (UA) Urine Ketones Urine Blood Urine Nitrite Ur Leukocyte Esterase Urine WBC (Auto) Urine RBC (Auto) 02/22/19 09:59 Troponin I 0.012 Impressions: Chest X-Ray 02/22/19 10:44 IMPRESSION: NO ACUTE RADIOGRAPHIC FINDING IN THE CHEST. Abdomen/Pelvis CT 02/22/19 12:28 IMPRESSION: 1. Postsurgical changes at the bowel with small amount of pneumoperitoneum and soft tissue stranding adjacent to the anastomosis site at the right lower quadrant, worrisome for bowel perforation; surgical consult recommended. Inflammatory changes at the soft tissues adjacent to the anastomosis and around small bowel loops at the right lower quadrant, superimposed enteritis is not excludable. 2. Colonic diverticulosis. 3. Bilateral perinephric stranding, may be secondary to chronic changes versus acute infection/ inflammation such as pyelonephritis. Please correlate with laboratory values/urinalysis. Assessment & Plan - Time Time Spent with patient: 15-24 minutes - Plan Summary Plan Summary: Impression: Diminishing abdominal pain based on limited history and physical examination. Leukocytosis improving on intravenous antibiotics. The exact etiology of the intra-abdominal problem is uncertain due to the limited CT scan performed on admission IV contrast only. Clinical situation discussed with the hospitalist; given clinical improvement, and patient's for aspiration with oral contrast, we decided to do current therapy and await input from family and/or any change in clinical condition for additional imaging performed. Plan: 1. As above; we will hold off on repeat CT scan today 2. Continue intravenous antibiotics, supportive therapy. 3. We will continue to follow with you.
--- NOTE | 2019-02-23 10:27 | PDOC PROGRESS REPORT ---
Subjective Progress Note for:: 02/23/19 Subjective:: Patient was admitted last night with a potential surgical abdomen. She did have previous abdominal surgery earlier this year. I am still waiting to talk to family members as the patient is too demented to give me history. Surgery reevaluation this morning would like to take a wait and see approach, and put on hold doing any further studies based on how patient clinically evolves over the next several days. Reason For Visit: ABDOMINAL PAIN,FEVER,CORONARY ARTERY DISEASE Physical Exam Vital Signs: Temp Pulse Resp BP Pulse Ox 98.3 F 61 20 135/39 H 95 02/23/19 07:26 02/23/19 07:26 02/23/19 07:26 02/23/19 07:26 02/23/19 07:26 Intake & Output 02/22/19 02/23/19 02/24/19 06:59 06:59 06:59 Intake Total 2250 Balance 2250 Weight 76.8 kg Results Laboratory Results: 02/23/19 04:58 02/23/19 04:58 02/22/19 02/22/19 02/22/19 09:59 09:59 09:59 WBC 22.8 H RBC 4.32 Hgb 12.8 Hct 38.0 MCV 88 MCH 29.7 MCHC 33.7 RDW 14.1 H Plt Count 218 Seg Neutrophils % Not Reportable VBG pH VBG pCO2 VBG HCO3 VBG Base Excess Sodium 131.4 L Potassium 3.5 L Chloride 95 L Carbon Dioxide 26 Anion Gap 10 BUN 18 Creatinine 0.91 Est GFR ( Amer) > 60 Glucose 147 H Lactic Acid Calcium 9.2 Magnesium Total Bilirubin 0.8 AST 24 Alkaline Phosphatase 86 Total Protein 6.2 L Albumin 3.7 Amylase 78 Lipase 157.1 Urine Color Urine Appearance Urine pH Ur Specific [place] Urine Protein Urine Glucose (UA) Urine Ketones Urine Blood Urine Nitrite Ur Leukocyte Esterase Urine WBC (Auto) Urine RBC (Auto) 02/22/19 02/22/19 02/22/19 10:47 10:47 11:34 WBC RBC Hgb Hct MCV MCH MCHC RDW Plt Count Seg Neutrophils % VBG pH 7.47 H VBG pCO2 37.6 VBG HCO3 26.5 VBG Base Excess 2.8 Sodium Potassium Chloride Carbon Dioxide Anion Gap BUN Creatinine Est GFR ( Amer) Glucose Lactic Acid 1.4 Calcium Magnesium Total Bilirubin AST Alkaline Phosphatase Total Protein Albumin Amylase Lipase Urine Color YELLOW Urine Appearance CLEAR Urine pH 5.0 Ur Specific [place] 1.020 Urine Protein NEGATIVE Urine Glucose (UA) NEGATIVE Urine Ketones NEGATIVE Urine Blood NEGATIVE Urine Nitrite NEGATIVE Ur Leukocyte Esterase NEGATIVE Urine WBC (Auto) 3 Urine RBC (Auto) 1 02/23/19 02/23/19 04:58 04:58 WBC 14.6 H RBC 3.71 L Hgb 11.1 L Hct 33.0 L MCV 89 MCH 29.8 MCHC 33.5 RDW 14.1 H Plt Count 155 Seg Neutrophils % 86.3 H VBG pH VBG pCO2 VBG HCO3 VBG Base Excess Sodium 134.9 L Potassium 3.3 L Chloride 102 Carbon Dioxide 26 Anion Gap 7 BUN 14 Creatinine 0.84 Est GFR ( Amer) > 60 Glucose 125 H Lactic Acid Calcium 8.4 Magnesium 1.9 Total Bilirubin AST Alkaline Phosphatase Total Protein Albumin Amylase Lipase Urine Color Urine Appearance Urine pH Ur Specific [place] Urine Protein Urine Glucose (UA) Urine Ketones Urine Blood Urine Nitrite Ur Leukocyte Esterase Urine WBC (Auto) Urine RBC (Auto) 02/22/19 09:59 Troponin I 0.012 Impressions: Chest X-Ray 02/22/19 10:44 IMPRESSION: NO ACUTE RADIOGRAPHIC FINDING IN THE CHEST. Abdomen/Pelvis CT 02/22/19 12:28 IMPRESSION: 1. Postsurgical changes at the bowel with small amount of pneumoperitoneum and soft tissue stranding adjacent to the anastomosis site at the right lower quadrant, worrisome for bowel perforation; surgical consult recommended. Inflammatory changes at the soft tissues adjacent to the anastomosis and around small bowel loops at the right lower quadrant, superimposed enteritis is not excludable. 2. Colonic diverticulosis. 3. Bilateral perinephric stranding, may be secondary to chronic changes versus acute infection/ inflammation such as pyelonephritis. Please correlate with laboratory values/urinalysis. Assessment and Plan - Diagnosis (1) Abnormal computed tomography of abdomen and pelvis Is this a current diagnosis for this admission?: Yes (2) Altered mental status Qualifiers: Altered mental status type: unspecified Qualified Code(s): R41.82 - Altered mental status, unspecified Is this a current diagnosis for this admission?: Yes (3) Fever Qualifiers: Fever type: unspecified Qualified Code(s): R50.9 - Fever, unspecified Is this a current diagnosis for this admission?: Yes (4) Leukocytosis Qualifiers: Leukocytosis type: bandemia Qualified Code(s): D72.825 - Bandemia Is this a current diagnosis for this admission?: Yes (5) CVA (cerebral vascular accident) Qualifiers: CVA mechanism: stenosis Precerebral and cerebral artery: posterior cerebral artery Laterality of affected vessel: left Qualified Code(s): I63.532 - Cerebral infarction due to unspecified occlusion or stenosis of left posterior cerebral artery Is this a current diagnosis for this admission?: Yes (6) Coronary artery disease Qualifiers: Coronary Disease-Associated Artery/Lesion type: unspecified vessel or lesion type [place] vs. transplanted heart: [place] heart Associated angina: without angina Qualified Code(s): I25.10 - Atherosclerotic heart disease of [place] coronary artery without angina pectoris Is this a current diagnosis for this admission?: Yes (7) Dementia Qualifiers: Dementia type: vascular dementia Dementia behavioral disturbance: without behavioral disturbance Qualified Code(s): F01.50 - Vascular dementia without behavioral disturbance Is this a current diagnosis for this admission?: Yes (8) Hx of heart artery stent Is this a current diagnosis for this admission?: Yes - Plan Summary Summary: 02/22/2019. Patient's CT scan of the abdomen and pelvis without contrast shows small amount of air and soft tissue stranding at the anastomosis site in the right lower quadrant also inflammatory changes of the soft tissue at that site in addition there is bilateral perinephric stranding. General surgery has reviewed the studies and spent a great deal of time discussing the case with the family. This time he feels a conservative approach is best with careful observation and reassessing the patient early. Patient will be placed on her home medications as indicated and started on IV antibiotics, kept n.p.o. until further notice. 02/23/2019 Patient's labs are improved this morning her white count is down to 14,600 her potassium is down slightly to 3.3., She is afebrile 98.3, pressure 135/39. She does not appear to be septic or toxic. Continue IV Zosyn, watch her clinically. We will need to discuss with the family how aggressive they would like us to be, than subject her to another CT scan of the abdomen pelvis with oral contrast. Patient's dementia prevents her from being a good historian. - Time Time Spent with patient: 35 or more minutes
[2019-02-23] MEDS: SERTRALINE HCL 50 MG TABLET PO SCH (10:44)
[2019-02-23] MEDS: LOSARTAN POTASSIUM 50 MG TABLET PO SCH (10:44)
[2019-02-23] MEDS: FAMOTIDINE INJ/PF 20 MG/2 ML SDV IV SCH ×2 (10:44→21:54)
[2019-02-23] MEDS: DOCUSATE SODIUM 100 MG CAPSULE PO SCH (10:44)
[2019-02-23] MEDS: MEMANTINE HCL 10 MG TABLET PO SCH (10:44)
--- NOTE | 2019-02-23 13:06 | Progress Note ---
Provider Note Provider Note: 02/23/2019 1300 hrs. I just spoke to the patient's and discussed her care. I explained to him that the patient had improved through the night concerning her white count, and clinically she has no guarding or rebound. He agreed that a conservative approach is the way he would like to go at this time. I told him we would continue IV antibiotics reassess her daily. Told him that in 48 hours we would have another discussion or judgment as to whether a CT of the abdomen with oral contrast should be done. This obviously will be primarily a general surgery decision with input from the family and medicine. Should the patient worsen or fail to improve then the treatment plan will be reevaluated. Did say that he would like his to be a DO NOT INTUBATE, with medications and CPR only and I will change this in the chart. All of his questions were answered he seems satisfied today.. He did tell me that the previous surgery back this spring was done in [facility] Part of the [facility] system.
[2019-02-23] MEDS: RISPERIDONE 1 MG TABLET PO SCH (21:54)
[2019-02-23] MEDS: ATORVASTATIN CALCIUM 40 MG TABLET PO SCH (21:54)
[2019-02-24] MEDS: NORMAL SALINE 1000 ML 1,000 ML IV PRN ×2 (00:01→10:45)
[2019-02-24] MEDS: PIPERACILLIN SODIUM/TAZOBACTAM 3.375 GM in NORMAL SALINE 100 ML IV SCH ×4 (02:28→21:12)
[2019-02-24] MEDS: INSULIN LISPRO 100 UNIT/ML 3 ML VIAL SUBCUT SCH ×4 (08:03→23:30)
[2019-02-24] MEDS: LOSARTAN POTASSIUM 50 MG TABLET PO SCH (10:44)
[2019-02-24] MEDS: DOCUSATE SODIUM 100 MG CAPSULE PO SCH (10:44)
[2019-02-24] MEDS: SERTRALINE HCL 50 MG TABLET PO SCH (10:44)
[2019-02-24] MEDS: FAMOTIDINE INJ/PF 20 MG/2 ML SDV IV SCH ×2 (10:44→21:12)
[2019-02-24] MEDS: MEMANTINE HCL 10 MG TABLET PO SCH (10:44)
--- NOTE | 2019-02-24 12:13 | PDOC PROGRESS REPORT ---
Subjective Progress Note for:: 02/24/19 Subjective:: Patient deeply asleep, non-arousable, according to the nurses she has received Ativan during the night because of agitation Reason For Visit: ABDOMINAL PAIN,FEVER,CORONARY ARTERY DISEASE Physical Exam Vital Signs: Temp Pulse Resp BP Pulse Ox 97.5 F 58 L 20 161/46 H 98 02/24/19 08:18 02/24/19 08:18 02/24/19 08:18 02/24/19 08:18 02/24/19 08:18 Intake & Output 02/23/19 02/24/19 02/25/19 06:59 06:59 06:59 Intake Total 3250 400 1000 Balance 3250 400 1000 Weight 76.8 kg 78.7 kg General appearance: PRESENT: other - Deeply asleep, not arousable despite physical and verbal stimuli Head exam: PRESENT: atraumatic GI/Abdominal exam: PRESENT: soft, tenderness - Minimal tenderness in the right abdomen Rectal exam: PRESENT: deferred Neurological exam: PRESENT: aphasic, other - Patient deeply asleep, not arousab le by the verbal and or physical stimuli, she does not appear to be in distress Psychiatric exam: PRESENT: other - I am not possible due to the patient deep sleep Results Laboratory Results: 02/23/19 04:58 02/23/19 04:58 02/22/19 11:34 Catheterized Urine Urine Culture - Final NO GROWTH 2 DAYS 02/22/19 09:59 Troponin I 0.012 Impressions: Chest X-Ray 02/22/19 10:44 IMPRESSION: NO ACUTE RADIOGRAPHIC FINDING IN THE CHEST. Abdomen/Pelvis CT 02/22/19 12:28 IMPRESSION: 1. Postsurgical changes at the bowel with small amount of pneu moperitoneum and soft tissue stranding adjacent to the anastomosis site at the right lower quadrant, worrisome for bowel perforation; surgical consult recommended. Inflammatory changes at the soft tissues adjacent to the anastomosis and around small bowel loops at the right lower quadrant, superimp osed enteritis is not excludable. 2. Colonic diverticulosis. 3. Bilateral perinephric stranding, may be secondary to chronic changes versus acute infection/ inflammation such as pyelonephritis. Please correlate with laboratory values/urinalysis. Assessment & Plan - Diagnosis (1) Abnormal computed tomography of abdomen and pelvis Is this a current diagnosis for this admission?: Yes (2) Altered mental status Qualifiers: Altered mental status type: unspecified Qualified Code(s): R41.82 - Altered mental status, unspecified Is this a current diagnosis for this admission?: Yes - Time Time Spent with patient: 25-34 minutes - Plan Summary Plan Summary: Assessment: History of right lower quadrant abdominal surgery with small bowel resection in August 2018 Current admission secondary to elevated white blood cell count CT scan abdomen pelvis done on admission reveals the presence of a small amount of extraluminal air nearby the bowel anastomosis The patient is currently deeply asleep, not arousable despite verbal and physical stimuli; most likely secondary to the administration of 1 mg of Ativan during the night because of agitation I suspect patient suffers from dementia and or other neurological conditions following a stroke years ago The hospitalist service is planning to obtain a repeat CT scan of the abdomen pelvis without oral contrast due to the patient altered mental status Plan: No general surgery procedure planned at this point. We will follow the results of the CT scan abdomen pelvis However, should the CT scan reveal significant findings, I do not believe that any major abdominal operation done on this patient will improve her quality of life due to her baseline altered mental status; rather, her postop course will be very difficult to manage and frown by many complications (pneumonia, UTI, inability to follow directions, to name a few) My recommendation will be to manage the patient with comfort care only.
[2019-02-24 13:09] LABS: ABSOLUTE EOSINOPHILS # (AUTO) 0.1 10^3/uL (0.0-0.6); ABSOLUTE LYMPHOCYTES (AUTO) 1.2 10^3/uL (0.5-4.7); ABSOLUTE MONOCYTES (AUTO) 0.9 10^3/uL (0.1-1.4); ABSOLUTE NEUT (AUTO) 8.9 10^3/uL (1.7-8.2); BASOPHILS % (AUTO) 0.4 % (0-2); HEMATOCRIT 33.1 % (36.0-47.0); HEMOGLOBIN 11.1 g/dL (12.0-15.5); LYMPHOCYTES % (AUTO) 10.5 % (13-45); MEAN CORPUSCULAR HGB CONC 33.4 g/dL (32.0-36.0); MEAN CORPUSCULAR VOLUME 90 fl (80-97); MONOCYTES % (AUTO) 8.1 % (3-13); PLATELET COUNT 168 10^3/uL (150-450); RED BLOOD COUNT 3.68 10^6/uL (3.72-5.28); RED CELL DISTRIBUTION WIDTH 14.1 % (11.5-14.0); TOTAL CELLS COUNTED % (AUTO) 100 %; WHITE BLOOD COUNT 11.1 10^3/uL (4.0-10.5)
[2019-02-24 13:21] LABS: ANION GAP 8 (5-19); BLOOD UREA NITROGEN 17 mg/dL (7-20); CALCIUM 8.3 mg/dL (8.4-10.2); CARBON DIOXIDE 25 mmol/L (22-30); CHLORIDE 105 mmol/L (98-107); GLUCOSE 89 mg/dL (75-110); POTASSIUM 3.8 mmol/L (3.6-5.0)
[2019-02-24] MEDS ORDERED: HALOPERIDOL LACTATE INJ 5 MG/1 ML VIAL IV PRN (17:50)
--- NOTE | 2019-02-24 18:07 | PDOC PROGRESS REPORT ---
Subjective Progress Note for:: 02/24/19 Subjective:: Patient is very lethargic this morning although still arousable. She did get an Ativan last night. Abdomen is not firm or distended. She has been deemed to be a very poor surgical candidate by surgery. Reason For Visit: ABDOMINAL PAIN,FEVER,CORONARY ARTERY DISEASE Physical Exam Vital Signs: Temp Pulse Resp BP Pulse Ox 97.9 F 82 18 137/92 H 100 02/24/19 16:37 02/24/19 16:37 02/24/19 16:37 02/24/19 16:37 02/24/19 16:37 Intake & Output 02/23/19 02/24/19 02/25/19 06:59 06:59 06:59 Intake Total 3250 400 1100 Balance 3250 400 1100 Weight 169 lb 5.04 oz 173 lb 8.061 oz General appearance: PRESENT: no acute distress, well-developed, well-nourished Head exam: PRESENT: atraumatic, normocephalic Eye exam: PRESENT: conjunctiva pink, EOMI, PERRLA. ABSENT: scleral icterus Ear exam: PRESENT: normal external ear exam Mouth exam: PRESENT: moist, tongue midline Neck exam: ABSENT: carotid bruit, JVD, lymphadenopathy, thyromegaly Respiratory exam: PRESENT: clear to auscultation ric. ABSENT: rales, rhonchi, wheezes Cardiovascular exam: PRESENT: RRR. ABSENT: diastolic murmur, rubs, systolic murmur Pulses: PRESENT: normal dorsalis pedis pul GI/Abdominal exam: ABSENT: distended, mass, rigid, tenderness Rectal exam: PRESENT: deferred Neurological exam: PRESENT: altered Results Laboratory Results: 02/24/19 12:19 02/24/19 12:19 02/24/19 02/24/19 12:19 12:19 WBC 11.1 H RBC 3.68 L Hgb 11.1 L Hct 33.1 L MCV 90 MCH 30.0 MCHC 33.4 RDW 14.1 H Plt Count 168 Seg Neutrophils % 80.0 H Sodium 137.7 Potassium 3.8 Chloride 105 Carbon Dioxide 25 Anion Gap 8 BUN 17 Creatinine 0.71 Est GFR ( Amer) > 60 Glucose 89 Calcium 8.3 L 02/22/19 11:34 Catheterized Urine Urine Culture - Final NO GROWTH 2 DAYS 02/22/19 09:59 Troponin I 0.012 Impressions: Chest X-Ray 02/22/19 10:44 IMPRESSION: NO ACUTE RADIOGRAPHIC FINDING IN THE CHEST. Abdomen/Pelvis CT 02/22/19 12:28 IMPRESSION: 1. Postsurgical changes at the bowel with small amount of pneumoperitoneum and soft tissue stranding adjacent to the anastomosis site at the right lower quadrant, worrisome for bowel perforation; surgical consult recommended. Inflammatory changes at the soft tissues adjacent to the anastomosis and around small bowel loops at the right lower quadrant, superimposed enteritis is not excludable. 2. Colonic diverticulosis. 3. Bilateral perinephric stranding, may be secondary to chronic changes versus acute infection/ inflammation such as pyelonephritis. Please correlate with laboratory values/urinalysis. Assessment and Plan - Diagnosis (1) Acute encephalopathy Is this a current diagnosis for this admission?: Yes Plan: Discontinue Ativan. Will put in for Haldol instead as needed for agitation. Will pursue a head CT. (2) Abnormal computed tomography of abdomen and pelvis Is this a current diagnosis for this admission?: Yes Plan: Initial CT showed changes concerning for possible perforation. Deemed to be a poor surgical candidate. Continue IV antibiotics. (3) Hypertension Qualifiers: Hypertension type: essential hypertension Qualified Code(s): I10 - Essential (primary) hypertension Is this a current diagnosis for this admission?: Yes (4) Hypokalemia Is this a current diagnosis for this admission?: Yes Plan: She had IV replacement yesterday. Repeat BMP. - Time Time Spent with patient: 25-34 minutes
--- NOTE | 2019-02-24 21:07 | RADIOLOGY REPORT (SQ) ---
CT HEAD WITHOUT IV CONTRAST EXAM DATE: 02/24/2019 5:32 PM CDT HISTORY: AMS. COMPARISON: None. TECHNIQUE: CT scan of the brain without IV contrast. This exam was performed according to our departmental dose-optimization program, which includes automated exposure control, adjustment of the mA and/or kV according to patient size and/or use of iterative reconstruction technique. FINDINGS: There are scattered areas of hypoattenuation within the periventricular white matter, which likely represent chronic microvascular ischemia. No evidence of acute infarction, intracranial hemorrhage, extra-axial fluid collection, or midline shift. No air-fluid levels are seen in the paranasal sinuses to suggest acute sinusitis. No depressed skull fracture. IMPRESSION: 1. No acute intracranial findings. 2. Senescent changes with chronic microvascular ischemia.
[2019-02-24] MEDS: ATORVASTATIN CALCIUM 40 MG TABLET PO SCH (21:12)
[2019-02-24] MEDS: RISPERIDONE 1 MG TABLET PO SCH (21:13)
--- NOTE | 2019-02-24 21:13 | RADIOLOGY REPORT (SQ) ---
CT ABDOMEN PELVIS WITHOUT IV CONTRAST EXAM DATE: 02/24/2019 5:33 PM CDT HISTORY: Abdominal pain. COMPARISON: 02/22/2019 TECHNIQUE: CT scan of the abdomen and pelvis was performed without IV contrast. This exam was performed according to our departmental dose-optimization program, which includes automated exposure control, adjustment of the mA and/or kV according to patient size and/or use of iterative reconstruction technique. FINDINGS: Small left pleural effusion with adjacent atelectasis. No pericardial effusion or hiatal hernia. Liver, spleen, gallbladder, pancreas, and adrenal glands are normal. Mild bilateral perinephric stranding. No hydronephrosis or urinary stones. There has been a prior hysterectomy. Surgical sutures surrounding the right lower quadrant bowel loops with interval resolution of free air. No surrounding fluid collection is identified. There is mild mesenteric stranding in this region which may be postsurgical. Moderate amount of stool in the colon suggesting constipation. There are mild degenerative changes of the spine. The aorta is diffusely atherosclerotic. IMPRESSION: Interval resolution of free air surrounding the right lower quadrant bowel loops at the site of surgical sutures.
[2019-02-24 21:52] LABS: ARTERIAL BLOOD BASE EXCESS -0.1 mmol/L; ARTERIAL BLOOD H2CO3 1.16 mmol/L (1.05-1.35); ARTERIAL BLOOD HCO3 24.3 mmol/L (20-24); ARTERIAL BLOOD O2 SATURATION 97.7 % (94-98); ARTERIAL BLOOD PCO2 38.7 mmHg (35-45); ARTERIAL BLOOD PH 7.42 (7.35-7.45); ARTERIAL BLOOD PO2 101.3 mmHg (80-100); ARTERIAL BLOOD TOTAL CO2 25.5 mmol/L (21-25)
[2019-02-24 21:53] LABS: ARTERIAL BLOOD FIO2 2L
[2019-02-25] MEDS: NORMAL SALINE 1000 ML 1,000 ML IV PRN ×2 (00:05→13:57)
[2019-02-25] MEDS: PIPERACILLIN SODIUM/TAZOBACTAM 3.375 GM in NORMAL SALINE 100 ML IV SCH ×4 (02:28→20:19)
[2019-02-25] MEDS: INSULIN LISPRO 100 UNIT/ML 3 ML VIAL SUBCUT SCH ×4 (08:08→21:24)
--- NOTE | 2019-02-25 08:56 | PDOC PROGRESS REPORT ---
Subjective Progress Note for:: 02/25/19 Subjective:: The patient appears to be comfortable, she is sleepy and non-arousable Reason For Visit: ABDOMINAL PAIN,FEVER,CORONARY ARTERY DISEASE Physical Exam Vital Signs: Temp Pulse Resp BP Pulse Ox 98.4 F 64 18 169/84 H 94 02/25/19 00:00 02/25/19 00:00 02/25/19 00:00 02/25/19 00:00 02/25/19 00:00 Intake & Output 02/24/19 02/25/19 02/26/19 06:59 06:59 06:59 Intake Total 400 2600 Output Total 400 Balance 400 2200 Weight 78.7 kg 71.8 kg General appearance: PRESENT: other - Sleepy and non-arousable Head exam: PRESENT: atraumatic Respiratory exam: PRESENT: clear to auscultation ric Cardiovascular exam: PRESENT: RRR GI/Abdominal exam: PRESENT: soft Results Laboratory Results: 02/24/19 12:19 02/24/19 12:19 02/24/19 02/24/19 02/24/19 12:19 12:19 21:30 WBC 11.1 H RBC 3.68 L Hgb 11.1 L Hct 33.1 L MCV 90 MCH 30.0 MCHC 33.4 RDW 14.1 H Plt Count 168 Seg Neutrophils % 80.0 H Carbonic Acid 1.16 HCO3/H2CO3 Ratio 20:1 ABG pH 7.42 ABG pCO2 38.7 ABG pO2 101.3 H ABG HCO3 24.3 H ABG O2 Saturation 97.7 ABG Base Excess -0.1 FiO2 2L Sodium 137.7 Potassium 3.8 Chloride 105 Carbon Dioxide 25 Anion Gap 8 BUN 17 Creatinine 0.71 Est GFR ( Amer) > 60 Glucose 89 Calcium 8.3 L 02/22/19 11:34 Catheterized Urine Urine Culture - Final NO GROWTH 2 DAYS 02/22/19 09:59 Troponin I 0.012 Impressions: Chest X-Ray 02/22/19 10:44 IMPRESSION: NO ACUTE RADIOGRAPHIC FINDING IN THE CHEST. Head CT 02/24/19 17:32 IMPRESSION: 1. No acute intracranial findings. 2. Senescent changes with chronic microvascular ischemia. Abdomen/Pelvis CT 02/24/19 17:33 IMPRESSION: Interval resolution of free air surrounding the right lower quadrant bowel loops at the site of surgical sutures. Assessment & Plan - Diagnosis (1) Abnormal computed tomography of abdomen and pelvis Is this a current diagnosis for this admission?: Yes (2) Altered mental status Qualifiers: Altered mental status type: unspecified Qualified Code(s): R41.82 - Altered mental status, unspecified Is this a current diagnosis for this admission?: Yes - Time Time Spent with patient: 25-34 minutes - Plan Summary Plan Summary: Assessment: CT scan done on February 24, 2018 shows no free air and no intra-abdominal findings, except for mild stranding in the right lower quadrant, most likely secondary to the surgery recently done White blood cell count 11K yesterday Physical exam: Abdomen soft Plan: No acute findings, patient asymptomatic even though her physical exam may be unreliable due to her sleepiness No procedure planned at this point based on the physical exam and CT scan findings I will sign off, please call us with questions.
[2019-02-25] MEDS: MEMANTINE HCL 10 MG TABLET PO SCH (09:17)
[2019-02-25] MEDS: LOSARTAN POTASSIUM 50 MG TABLET PO SCH (09:18)
[2019-02-25] MEDS: DOCUSATE SODIUM 100 MG CAPSULE PO SCH (09:18)
[2019-02-25] MEDS: SERTRALINE HCL 50 MG TABLET PO SCH (09:18)
[2019-02-25] MEDS: FAMOTIDINE INJ/PF 20 MG/2 ML SDV IV SCH ×2 (09:18→21:24)
[2019-02-25] MEDS ORDERED: HALOPERIDOL LACTATE INJ 5 MG/1 ML VIAL IV PRN (15:49)
--- NOTE | 2019-02-25 16:07 | PDOC PROGRESS REPORT ---
Subjective Progress Note for:: 02/25/19 Subjective:: 02/24: Patient is very lethargic this morning although still arousable. She did get an Ativan last night. Abdomen is not firm or distended. She has been deemed to be a very poor surgical candidate by surgery. 02/25: No acute event overnight. Ativan was discontinued yesterday. She did receive a dose of hospital overnight due to restlessness. Upon encounter this morning, patient is easily arousable and is comfortable. She is oriented to person and place. She denies abdominal pain, chest pain or shortness of breath. is on the bedside does say she is mostly oriented at home and just gets confused in the hospital. He wants her to go to a SNF in [place], [place]. We rediscussed her CODE STATUS in length as she was made DNI/okay with CPR and defibrillation. He verbalized that he only meant for her NOT TO BE on PROLONGED mechanical ventilation but insists that she gets chest compressions, defibrillation or temporary mechanical ventilation if the need arises. Her verbalizes that although she has dementia, she is still has her "good days" when she is not in the hospital. She will be made Full Code at this time. Reason For Visit: ABDOMINAL PAIN,FEVER,CORONARY ARTERY DISEASE Physical Exam Vital Signs: Temp Pulse Resp BP Pulse Ox 98.1 F 64 16 134/52 H 100 02/25/19 08:00 02/25/19 11:22 02/25/19 11:22 02/25/19 11:22 02/25/19 11:22 Intake & Output 02/24/19 02/25/19 02/26/19 06:59 06:59 06:59 Intake Total 400 2600 1100 Output Total 400 Balance 400 2200 1100 Weight 173 lb 8.061 oz 158 lb 4.67 oz General appearance: PRESENT: no acute distress, well-developed, well-nourished Head exam: PRESENT: atraumatic, normocephalic Eye exam: PRESENT: conjunctiva pink, EOMI, PERRLA. ABSENT: scleral icterus Ear exam: PRESENT: normal external ear exam Mouth exam: PRESENT: moist, tongue midline Neck exam: ABSENT: carotid bruit, JVD, lymphadenopathy, thyromegaly Respiratory exam: PRESENT: clear to auscultation ric. ABSENT: rales, rhonchi, wheezes Cardiovascular exam: PRESENT: RRR. ABSENT: diastolic murmur, rubs, systolic murmur GI/Abdominal exam: PRESENT: normal bowel sounds, soft. ABSENT: distended, guarding, mass, organolmegaly, rebound, tenderness Rectal exam: PRESENT: deferred Neurological exam: PRESENT: alert, awake, oriented to person, oriented to place, CN II-XII grossly intact. ABSENT: motor sensory deficit Results Laboratory Results: 02/24/19 12:19 02/24/19 12:19 02/24/19 21:30 Carbonic Acid 1.16 HCO3/H2CO3 Ratio 20:1 ABG pH 7.42 ABG pCO2 38.7 ABG pO2 101.3 H ABG HCO3 24.3 H ABG O2 Saturation 97.7 ABG Base Excess -0.1 FiO2 2L 02/22/19 11:34 Catheterized Urine Urine Culture - Final NO GROWTH 2 DAYS 02/22/19 09:59 Troponin I 0.012 Impressions: Chest X-Ray 02/22/19 10:44 IMPRESSION: NO ACUTE RADIOGRAPHIC FINDING IN THE CHEST. Head CT 02/24/19 17:32 IMPRESSION: 1. No acute intracranial findings. 2. Senescent changes with chronic microvascular ischemia. Abdomen/Pelvis CT 02/24/19 17:33 IMPRESSION: Interval resolution of free air surrounding the right lower quadrant bowel loops at the site of surgical sutures. Assessment and Plan - Diagnosis (1) Acute encephalopathy Is this a current diagnosis for this admission?: Yes Plan: Discontinue Ativan. Will put in for Haldol instead as needed for agitation. Will pursue a head CT. 02/25: Resolved. (2) Abnormal computed tomography of abdomen and pelvis Is this a current diagnosis for this admission?: Yes Plan: Initial CT showed changes concerning for possible perforation. Deemed to be a poor surgical candidate. Continue IV antibiotics. 02/25: Repeat CT is unremakrable. Surgery has signed off. (3) Hypertension Qualifiers: Hypertension type: essential hypertension Qualified Code(s): I10 - Essential (primary) hypertension Is this a current diagnosis for this admission?: Yes (4) Hypokalemia Is this a current diagnosis for this admission?: Yes Plan: Resolved. - Time Time Spent with patient: 25-34 minutes
--- NOTE | 2019-02-25 16:07 | ADVANCED CARE ---
- Diagnosis (1) Acute encephalopathy Diagnosis Current: Yes (2) Abnormal computed tomography of abdomen and pelvis Diagnosis Current: Yes (3) Hypertension Diagnosis Current: Yes (4) Hypokalemia Diagnosis Current: Yes Resuscitation Status: Full Code Discussion: We rediscussed her CODE STATUS in length as she was made DNI/okay with CPR and defibrillation. He verbalized that he only meant for her NOT TO BE on PROLONGED mechanical ventilation but insists that she gets chest compressions, defibrillation or temporary mechanical ventilation if the need arises. Her verbalizes that although she has dementia, she is still has her "good days" when she is not in the hospital. She will be made Full Code at this time.
[2019-02-25] MEDS: ATORVASTATIN CALCIUM 40 MG TABLET PO SCH (21:22)
[2019-02-25] MEDS: RISPERIDONE 1 MG TABLET PO SCH (21:22)
[2019-02-26] MEDS: PIPERACILLIN SODIUM/TAZOBACTAM 3.375 GM in NORMAL SALINE 100 ML IV SCH (03:18)
[2019-02-26] MEDS: NORMAL SALINE 1000 ML 1,000 ML IV PRN (05:08)
[2019-02-26] MEDS: INSULIN LISPRO 100 UNIT/ML 3 ML VIAL SUBCUT SCH ×3 (07:29→16:39)
[2019-02-26] MEDS ORDERED: CIPROFLOXACIN HCL 500 MG TABLET PO SCH (10:00)
[2019-02-26] MEDS: LOSARTAN POTASSIUM 50 MG TABLET PO SCH (10:55)
[2019-02-26] MEDS: FAMOTIDINE INJ/PF 20 MG/2 ML SDV IV SCH (10:55)
[2019-02-26] MEDS: SERTRALINE HCL 50 MG TABLET PO SCH (10:55)
[2019-02-26] MEDS: DOCUSATE SODIUM 100 MG CAPSULE PO SCH (10:55)
[2019-02-26] MEDS: MEMANTINE HCL 10 MG TABLET PO SCH (10:59)
[2019-02-26 11:36] LABS: ABSOLUTE EOSINOPHILS # (AUTO) 0.1 10^3/uL (0.0-0.6); ABSOLUTE LYMPHOCYTES (AUTO) 0.8 10^3/uL (0.5-4.7); ABSOLUTE MONOCYTES (AUTO) 0.5 10^3/uL (0.1-1.4); ABSOLUTE NEUT (AUTO) 4.6 10^3/uL (1.7-8.2); BASOPHILS % (AUTO) 0.5 % (0-2); EOSINOPHILS % (AUTO) 1.9 % (0-6); LYMPHOCYTES % (AUTO) 13.5 % (13-45); MEAN CORPUSCULAR HEMOGLOBIN 30.9 pg (27.0-33.4); MEAN CORPUSCULAR HGB CONC 34.4 g/dL (32.0-36.0); MEAN CORPUSCULAR VOLUME 90 fl (80-97); MONOCYTES % (AUTO) 7.9 % (3-13); PLATELET COUNT 189 10^3/uL (150-450); RED BLOOD COUNT 2.88 10^6/uL (3.72-5.28); RED CELL DISTRIBUTION WIDTH 13.8 % (11.5-14.0); SEGMENTED NEUTROPHILS % (AUTO) 76.2 % (42-78); TOTAL CELLS COUNTED % (AUTO) 100 %
[2019-02-26 11:41] LABS: HEMATOCRIT 25.9 % (36.0-47.0)
[2019-02-26 11:44] LABS: BLOOD UREA NITROGEN 19 mg/dL (7-20); CALCIUM 8.4 mg/dL (8.4-10.2); GLUCOSE 98 mg/dL (75-110)
[2019-02-26 11:53] LABS: HEMOGLOBIN 8.9 g/dL (12.0-15.5)
[2019-02-26 11:54] LABS: POTASSIUM 3.5 mmol/L (3.6-5.0)
[2019-02-26 12:02] LABS: ANION GAP 6 (5-19); CARBON DIOXIDE 28 mmol/L (22-30); CHLORIDE 103 mmol/L (98-107)
[2019-02-26] MEDS ORDERED: PANTOPRAZOLE SODIUM 40 MG VIAL IV SCH (13:00)
[2019-02-26] MEDS ORDERED: METRONIDAZOLE 500 MG TABLET PO SCH (14:00)
--- NOTE | 2019-02-26 15:33 | PDOC TRANSFER SUMMARY ---
General Admission Date/PCP: 02/22/19 15:47 DHAVAL URIBE MD Admission Date: 02/22/19 Transfer Date: 02/26/19 Accepting Facility: [facility] Resuscitation Status: Full Code - Transfer Diagnosis (1) Acute encephalopathy Is this a current diagnosis for this admission?: Yes (2) Abnormal computed tomography of abdomen and pelvis Is this a current diagnosis for this admission?: Yes (3) Hypertension Is this a current diagnosis for this admission?: Yes (4) Hypokalemia Is this a current diagnosis for this admission?: Yes - Transfer Medications Home Medications: Losartan/Hydrochlorothiazide [Hyzaar 100-25 Tablet] 1 tab PO DAILY 02/23/19 Pantoprazole Sodium [Protonix [address] Tablet] 40 mg PO BIDBS 02/23/19 Potassium Chloride 10 meq PO DAILY 02/23/19 Risperidone [Risperdal] 0.5 mg PO DAILY 02/23/19 Sertraline HCl [Zoloft 50 mg Tablet] 50 mg PO DAILY 02/23/19 Transfer Medications: Current Medications Acetaminophen (Tylenol 325 Mg Tablet) 650 mg PO Q4HP PRN PRN Reason: FOR PAIN OR TEMP Stop: 03/24/19 15:54 Last Admin: 02/22/19 19:40 Dose: 650 mg Documented by: Atorvastatin Calcium (Lipitor 40 Mg Tablet) 40 mg PO QHS MIGUEL A Stop: 03/24/19 21:59 Last Admin: 02/25/19 21:22 Dose: 40 mg Documented by: Ciprofloxacin (Cipro 500 Mg Tablet) 500 mg PO Q12 MIGUEL A Stop: 03/05/19 09:59 Last Admin: 02/26/19 10:55 Dose: 500 mg Documented by: Dextrose (Dextrose Inj 50% Syringe (25 Gm/50 Ml)) 12.5 gm IV PRN PRN; Protocol PRN Reason: FOR BG 50-69 IN ALERT PATIENT Stop: 03/24/19 16:08 Dextrose (Dextrose Inj 50% Syringe (25 Gm/50 Ml)) 25 gm IV PRN PRN; Protocol PRN Reason: PER PROTOCOL Stop: 03/24/19 16:08 Docusate Sodium (Colace 100 Mg Capsule) 100 mg PO DAILY MIGUEL A Stop: 03/25/19 09:59 Last Admin: 02/26/19 10:55 Dose: 100 mg Documented by: Glucagon (Glucagen Inj 1 Mg Vial) 1 mg SUBCUT PRN PRN; Protocol PRN Reason: Evaluate for BG < 70 Stop: 03/24/19 15:54 Glucagon (Glucagen Inj 1 Mg Vial) 1 mg IM PRN PRN; Protocol PRN Reason: Evaluate for BG < 70 Stop: 03/24/19 16:08 Glucose (Glutose 40% Gel 15 Gm Tube) 15 gm PO PRN PRN; Protocol PRN Reason: FOR BG 50-69 IN ALERT PATIENT Stop: 03/24/19 16:08 Glucose (Glutose 40% Gel 15 Gm Tube) 30 gm PO PRN PRN; Protocol PRN Reason: FOR BG < 50 IN ALERT PATIENT Stop: 03/24/19 16:08 Haloperidol Lactate (Haldol 5 Mg/Ml Inj 1 Ml Vial) 1 mg IV Q6HP PRN PRN Reason: RESTLESSNESS/AGITATION Stop: 03/26/19 17:49 Sodium Chloride (Nacl 0.9% 1000 Ml Iv Soln) 1,000 mls @ 100 mls/hr IV C ONTINUOUS PRN PRN Reason: THIS MED IS NOT "PRN" Stop: 03/24/19 15:54 Last Admin: 02/26/19 05:08 Dose: 100 mls/hr Documented by: Insulin Human Lispro (Humalog Insulin 100 Unit/1 Ml 3 Ml Vial) 0 - 12 unit SUBCUT [facility]; Protocol Stop: 03/24/19 21:59 Last Admin: 02/26/19 11:33 Dose: Not Given Documented by: Losartan Potassium (Cozaar 50 Mg Tablet) 100 mg PO DAILY [facility] Stop: 03/25/19 09:59 Last Admin: 02/26/19 10:55 Dose: 100 mg Documented by: Memantine (Namenda 10 Mg Tablet) 5 mg PO DAILY [facility] Stop: 03/25/19 09:59 Last Admin: 02/26/19 10:59 Dose: 5 mg Documented by: Metronidazole (Flagyl 500 Mg Tablet) 500 mg PO Q8 [facility] Stop: 03/05/19 13:59 Last Admin: 02/26/19 13:05 Dose: 500 mg Documented by: Ondansetron HCl (Zofran Odt 4 Mg Tablet) 4 mg PO Q8HP PRN PRN Reason: FOR NAUSEA/VOMITING Stop: 03/24/19 15:54 Ondansetron HCl (Zofran Inj/Pf 4 Mg/2 Ml Sdv) 4 mg IV Q8HP PRN PRN Reason: FOR NAUSEA/VOMITING Stop: 03/24/19 15:54 Pantoprazole Sodium (Protonix Iv Inj 40 Mg Vial) 40 mg IV Q12 MIGUEL A Stop: 03/01/19 12:59 Last Admin: 02/26/19 13:05 Dose: 40 mg Documented by: Risperidone (Risperdal 1 Mg Tablet) 1 mg PO QHS MIGUEL A Stop: 03/24/19 21:59 Last Admin: 02/25/19 21:22 Dose: 1 mg Documented by: Sertraline HCl (Zoloft 50 Mg Tablet) 50 mg PO DAILY MIGUEL A Stop: 03/25/19 09:59 Last Admin: 02/26/19 10:55 Dose: 50 mg Documented by: - Allergies Allergies/Adverse Reactions: clopidogrel [From Plavix] Allergy (Verified 02/22/19 10:57) Sulfa (Sulfonamide Antibiotics) Allergy (Verified 02/22/19 10:57) contrast dye Allergy (Uncoded 02/22/19 13:00) [facility] Hospital Course Hospital Course: This is a 78-year-old female with a past medical history of CVA, possible va scular dementia, CAD with prior stenting, history of upper GI bleed from a bleeding gastric ulcer in April 2018, 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 CT of the abdomen and pelvis that time showed a possible microperforation. She did NOT present with an acute abdomen. Surgery evaluated patient. She was managed conservatively with IV antibiotics. She was given IV fluids and started on IV Zosyn. Patient significantly clinically improved. Repeat CT of the abdomen pelvis showed resolution of gas/perforation. Patient has been doing well and has been stable and was close to being discharged to a SNF in [place], [place]. However this morning, patient passed out a large black tarry stool. Occult blood was also positive. Hemoglobin dropped significantly from 12.8 to 8.9. Patient was started on IV Protonix for a likely upper GI bleed. Question if there is a component of anastomotic bleed. Due to unavailability of GI services and family requesting transfer to [place] as patient had her scopes done in [place] before, patient will be transferred to [facility]. Discussed with hospitalist, Dr. Deras who has accepted the transfer. Physical Exam Vital Signs: Temp Pulse Resp BP Pulse Ox 97.6 F 67 16 165/64 H 94 02/26/19 11:13 02/26/19 11:13 02/26/19 11:13 02/26/19 11:13 02/26/19 13:46 Intake & Output 02/25/19 02/26/19 02/27/19 06:59 06:59 06:59 Intake Total 2600 2400 Output Total 400 1000 Balance 2200 1400 Weight 158 lb 4.67 oz 169 lb 5.04 oz General appearance: PRESENT: no acute distress, well-developed, well-nourished Head exam: PRESENT: atraumatic, normocephalic Eye exam: PRESENT: conjunctiva pink, EOMI, PERRLA. ABSENT: scleral icterus Ear exam: PRESENT: normal external ear exam Mouth exam: PRESENT: moist, tongue midline Respiratory exam: PRESENT: clear to auscultation ric. ABSENT: rales, rhonchi, wheezes Cardiovascular exam: PRESENT: RRR. ABSENT: diastolic murmur, rubs, systolic murmur Pulses: PRESENT: normal dorsalis pedis pul GI/Abdominal exam: PRESENT: normal bowel sounds, soft. ABSENT: distended, guarding, mass, organolmegaly, rebound, tenderness Rectal exam: PRESENT: deferred Extremities exam: PRESENT: full ROM. ABSENT: calf tenderness, clubbing, pedal edema Neurological exam: PRESENT: alert, awake, oriented to person, oriented to place, CN II-XII grossly intact. ABSENT: motor sensory deficit Results Laboratory Results: 02/26/19 11:09 02/26/19 11:09 02/26/19 02/26/19 02/26/19 09:55 11:09 11:09 WBC 6.0 RBC 2.88 L Hgb 8.9 L D Hct 25.9 L MCV 90 MCH 30.9 MCHC 34.4 RDW 13.8 Plt Count 189 Seg Neutrophils % 76.2 Sodium 137.2 Potassium 3.5 L Chloride 103 Carbon Dioxide 28 Anion Gap 6 BUN 19 Creatinine 0.66 Est GFR ( Amer) > 60 Glucose 98 Calcium 8.4 Stool Occult Blood POSITIVE 02/22/19 09:59 Troponin I 0.012 Impressions: Chest X-Ray 02/22/19 10:44 IMPRESSION: NO ACUTE RADIOGRAPHIC FINDING IN THE CHEST. Head CT 02/24/19 17:32 IMPRESSION: 1. No acute intracranial findings. 2. Senescent changes with chronic microvascular ischemia. Abdomen/Pelvis CT 02/24/19 17:33 IMPRESSION: Interval resolution of free air surrounding the right lower quadrant bowel loops at the site of surgical sutures.
[2019-02-26 15:55] LABS: HEMATOCRIT 23.9 % (36.0-47.0); HEMOGLOBIN 8.1 g/dL (12.0-15.5); MEAN CORPUSCULAR HEMOGLOBIN 30.1 pg (27.0-33.4); MEAN CORPUSCULAR HGB CONC 33.8 g/dL (32.0-36.0); MEAN CORPUSCULAR VOLUME 89 fl (80-97); PLATELET COUNT 192 10^3/uL (150-450); RED BLOOD COUNT 2.69 10^6/uL (3.72-5.28); RED CELL DISTRIBUTION WIDTH 13.7 % (11.5-14.0); WHITE BLOOD COUNT 5.9 10^3/uL (4.0-10.5)
[2019-02-26 16:46] VITALS: BP 147/49
== END 2019-02-26 18:12 | disposition short-term general hospital (02) | DRG 392 ==
LOC: ER 10:36 → EH 15:47 → 4W 18:52
PROVIDERS: ADMIT Internal Medicine; ATTEND Internal Medicine
DX: R93.5 Abnormal findings on diagnostic imaging of other abdominal regions, including retroperitoneum (principal); R71.0 Precipitous drop in hematocrit; I25.10 Atherosclerotic heart disease of native coronary artery without angina pectoris; E78.5 Hyperlipidemia, unspecified; I10 Essential (primary) hypertension; F32.9 Major depressive disorder, single episode, unspecified; E87.6 Hypokalemia; K21.9 Gastro-esophageal reflux disease without esophagitis; F01.50 Vascular dementia, unspecified severity, without behavioral disturbance, psychotic disturbance, mood disturbance, and anxiety; E78.00 Pure hypercholesterolemia, unspecified; D72.825 Bandemia; R10.9 Unspecified abdominal pain; I69.311 Memory deficit following cerebral infarction; I69.320 Aphasia following cerebral infarction; I25.2 Old myocardial infarction; Z88.2 Allergy status to sulfonamides; Z88.8 Allergy status to other drugs, medicaments and biological substances; Z91.041 Radiographic dye allergy status; Z90.49 Acquired absence of other specified parts of digestive tract; Z95.5 Presence of coronary angioplasty implant and graft; Z87.11 Personal history of peptic ulcer disease; Z87.891 Personal history of nicotine dependence; Z79.899 Other long term (current) drug therapy; Z79.82 Long term (current) use of aspirin
CPT/HCPCS: 36415; 36600; 51701; 70450; 71045; 74176; 80048; 80053; 81001; 82150; 82272; 82803; 82962; 83036; 83605; 83690; 83735; 84484; 85025; 85610; 87040; 87086; 93005; 93010; 96361; 96365; 99285; J1335; J1630; J2060; J2543; J3480; J7030; J7050; J7120; S0028; S0164